=== PATIENT | female | born 1950 | race Caucasian/White ===

== ENCOUNTER 2017-06-03 15:27 | Inpatient (IN) | payer MEDICAID ==
--- NOTE | 2017-06-03 16:01 | CPEKG ---
Heart Rate: 72 RR Interval: 833 P-R Interval: 160 QRSD Interval: 82 QT Interval: 444 QTC Interval: 486 P [place]: 57 QRS [place]: 28 T Wave [place]: 63 EKG Severity - BORDERLINE ECG - EKG Impression: SINUS RHYTHM EKG Impression: BORDERLINE T ABNORMALITIES, ANT-LAT LEADS EKG Impression: BORDERLINE PROLONGED QT INTERVAL Electronically Signed By: Rosalba Whitten 03-Jun-2017 20:01:11
[2017-06-03] MEDS ORDERED: ONDANSETRON 4 MG/2 ML VIAL ONE (16:08)
[2017-06-03] MEDS ORDERED: NS 1,000 ML IV ONE (16:12)
[2017-06-03] MEDS ORDERED: ONDANSETRON 4 MG/2 ML VIAL IVP ONE (16:12)
--- NOTE | 2017-06-03 16:13 | EDPHY ---
H & P Time Seen by Provider: 06/03/17 15:53 HPI/ROS: CHIEF COMPLAINT: Nausea vomiting HISTORY OF PRESENT ILLNESS: Patient is a 66-year-old female with a history of chronic kidney disease, stage IV, who presents emergency department with nausea vomiting times 12 days. Patient has approximately 2 episodes of nonbloody emesis per day. She has had difficulty eating because of poor appetite. She feels fatigued. She has no abdominal pain. No diarrhea. No recent travel. No antibiotic use. No dysuria or frequency. No fevers or chills. REVIEW OF SYSTEMS: My complete review of systems is negative except as mentioned in the HPI. Past Medical/Surgical History: Chronic kidney disease Past surgical history: Includes appendectomy Social history: The patient does not smoke. She denies alcohol use. Smoking Status: Never smoked Physical Exam: Vitals noted. 209/133. Patient denies history of hypertension. GENERAL: Well-appearing, in no acute distress, alert. HEENT: Eyes normal to inspection, normal pharynx, no signs of dehydration. NECK: No thyromegaly, no lymphadenopathy, supple. RESPIRATORY: Clear to auscultation bilaterally, no rales, rhonchi or wheezing. CVS: Regular rate and rhythm, no rubs, murmurs, or gallops. ABDOMEN: Soft, nontender, nondistended, no organomegaly. BACK: Normal to inspection, no CVA tenderness. SKIN: Normal color, no rash, warm, dry. No pallor. EXTREMITIES: Mild bilateral finger no clubbing. No pedal edema, no calf tenderness, no Homans sign or cords, no joint swelling. NEURO/PSYCH: Alert and oriented x3, normal mood and affect, normal motor sensory exam. No obvious cranial nerve deficit. Constitutional: Initial Vital Signs Temperature (C) 36.5 C 06/03/17 15:31 Heart Rate 83 06/03/17 15:31 Respiratory Rate 16 06/03/17 15:31 Blood Pressure 209/133 H 06/03/17 15:31 O2 Sat (%) 98 06/03/17 15:31 O2 Delivery Mode Room Air Allergies/Adverse Reactions: No Known Allergies Allergy (Unverified 09/23/11 17:09) Home Medications: Medication Instructions Recorded NK [No Known Home Meds] 06/03/17 Medical Decision Making - Diagnostics EKG Interpretation: Sinus rhythm at 72. Normal axis. Borderline prolonged QT. No ST or T-wave abnormality. ED Course/Re-evaluation: In the emergency department I discussed possible etiologies with the patient. I answered all her questions. IV was placed. The patient was given normal saline 500 mL IV for hydration. She was given Zofran 4 mg IV. Reviewed the patient's laboratory studies. Patient has a normal white count 7.8. Her med crit is low at 23. Platelets were 328. The patient has an elevated creatinine of 14.3. The potassium is 5.3. CO2 13. AST and ALT are normal. I discussed the results with the patient. I answered all her questions. I consulted Dr. Devan James. He will admit the patient. I paged nephrology 1735: I discussed case with Dr. Patiño from nephrology. She recommended a renal ultrasound. This was ordered. I discussed this with Dr. James. Patient was given labetalol 20 mg IV for her hypertension. 1845: I rechecked the patient. She had no new complaints. Her blood pressure was 168/99. Differential Diagnosis: My differential includes but is not limited to electrolyte abnormality, sugar abnormality, dehydration, kidney disease, hypertensive urgency, hypertensive emergency, viral illness, copd Critical Care Time: The patient required 35 minutes of critical care time. This was exclusive of any unbundled procedure. This was due the patient's new onset renal failure, need for frequent rechecks, consultation with Nephrology and Internal Medicine and treatment with labetalol for hypertension. - Data Points Laboratory Results: Laboratory Results 06/03/17 16:10 06/03/17 16:10 06/03/17 06/03/17 06/03/17 16:10 16:10 16:10 WBC 7.85 10^3/uL 10^3/uL (3.80-9.50) RBC 2.53 10^6/uL L 10^6/uL (4.18-5.33) Hgb 7.4 g/dL L g/dL (12.6-16.3) Hct 23.3 % L % (38.0-47.0) MCV 92.1 fL fL (81.5-99.8) MCH 29.2 pg pg (27.9-34.1) MCHC 31.8 g/dL L g/dL (32.4-36.7) RDW 13.8 % % (11.5-15.2) Plt Count 328 10^3/uL 10^3/uL (150-400) MPV 12.0 fL H fL (8.7-11.7) Neut % (Auto) 69.3 % % (39.3-74.2) Lymph % (Auto) 21.4 % % (15.0-45.0) [place] % (Auto) 6.0 % % (4.5-13.0) Eos % (Auto) 1.9 % % (0.6-7.6) Baso % (Auto) 1.1 % % (0.3-1.7) Nucleat RBC Rel Count 0.0 % % (0.0-0.2) Absolute Neuts (auto) 5.44 10^3/uL 10^3/uL (1.70-6.50) Absolute Lymphs (auto) 1.68 10^3/uL 10^3/uL (1.00-3.00) Absolute Monos (auto) 0.47 10^3/uL 10^3/uL (0.30-0.80) Absolute Eos (auto) 0.15 10^3/uL 10^3/uL (0.03-0.40) Absolute Basos (auto) 0.09 10^3/uL 10^3/uL (0.02-0.10) Absolute Nucleated RBC 0.00 10^3/uL 10^3/uL (0-0.01) Immature Gran % 0.3 % % (0.0-1.1) Immature Gran # 0.02 10^3/uL 10^3/uL (0.00-0.10) Sodium 142 mEq/L mEq/L (134-144) Potassium 5.3 mEq/L H mEq/L (3.5-5.2) Chloride 107 mEq/L mEq/L (97-110) Carbon Dioxide 13 mEq/l L mEq/l (22-31) Anion Gap 22 mEq/L H mEq/L (8-16) BUN 143 mg/dL H* mg/dL (7-23) Creatinine 14.3 mg/dL H* mg/dL (0.6-1.0) Estimated GFR 3 Glucose 104 mg/dL H mg/dL (70-100) Calcium 7.3 mg/dL L mg/dL (8.5-10.4) Iron 81.0 mcg/dL mcg/dL (37.0-170.0) TIBC 266 ug/dL ug/dL (260-490) Iron Saturation 31 % % (20-55) Ferritin 192.0 ng/mL ng/mL (6.2-264.0) Total Bilirubin 0.3 mg/dL mg/dL (0.1-1.4) Conjugated Bilirubin 0.3 mg/dL mg/dL (0.0-0.5) Unconjugated Bilirubin 0.0 mg/dL mg/dL (0.0-1.1) AST 15 IU/L IU/L (14-46) ALT 23 IU/L IU/L (9-52) Alkaline Phosphatase 130 IU/L H IU/L (38-126) Troponin I 0.026 ng/mL ng/mL (0.000-0.034) Total Protein 6.7 g/dL g/dL (6.3-8.2) Albumin 3.5 g/dL g/dL (3.5-5.0) Lipase 639 IU/L H IU/L (23-300) Medications Given: Labetalol HCl 200 mg/ Dextrose 200 mls @ 0 mls/hr IV CONT VAN; As Directed PRN Reason: Protocol Stop: 11/30/17 17:59 Last Admin: 06/03/17 18:35 Dose: 200 mls Sodium Bicarbonate 150 meq/ (Dextrose) 1,150 mls @ 100 mls/hr IV CONT VAN Stop: 11/30/17 17:59 Last Admin: 06/03/17 18:36 Dose: 1,150 mls Discontinued Medications Sodium Chloride (Ns) 1,000 mls @ 0 mls/hr IV ONCE ONE PRN Reason: Wide Open Stop: 06/03/17 16:13 Last Admin: 06/03/17 16:13 Dose: 1,000 mls Sodium Chloride (Ns) 500 mls @ 0 mls/hr IV EDNOW ONE; Wide Open PRN Reason: Protocol Stop: 06/03/17 16:16 Last Admin: 06/03/17 16:23 Dose: Not Given Labetalol HCl (Labetalol Hcl) 20 mg IVP EDNOW ONE Stop: 06/03/17 17:47 Last Admin: 06/03/17 18:14 Dose: 20 mg Labetalol HCl (Trandate Injection) 20 mg IVP ONCE ONE Stop: 06/03/17 18:01 Last Admin: 06/03/17 18:13 Dose: 20 mg Ondansetron HCl (Zofran) 4 mg IVP EDNOW ONE Stop: 06/03/17 16:13 Last Admin: 06/03/17 16:13 Dose: 4 mg Departure - Departure Disposition: Home, Routine, Self-Care Clinical Impression: Hypertension Qualifiers: Hypertension type: unspecified Qualified Code(s): I10 - Essential (primary) hypertension Vomiting Qualifiers: Vomiting type: unspecified Vomiting Intractability: intractable Nausea presence : without nausea Qualified Code(s): R11.11 - Vomiting without nausea Condition: Good
[2017-06-03] MEDS ORDERED: NS 500 ML IV ONE (16:15)
[2017-06-03 16:26] LABS: % IMMATURE GRANULYOCYTES 0.3 % (0.0-1.1); ABSOLUTE IMMATURE GRANULOCYTES 0.02 10^3/uL (0.00-0.10); ADD DIFF? NO; ADD MORPH? NO; ADD SCAN? NO; ATYPICAL LYMPHOCYTE FLAG 0 (0-99); FRAGMENT RBC FLAG 10 (0-99); HEMATOCRIT 23.3 % (38.0-47.0); HEMOGLOBIN 7.4 g/dL (12.6-16.3); LEFT SHIFT FLG 0 (0-99); LIPEMIA HEMOLYSIS FLAG 80 (0-99); MEAN CELL HEMOGLOBIN 29.2 pg (27.9-34.1); MEAN CELL HEMOGLOBIN CONCENTR. 31.8 g/dL (32.4-36.7); MEAN CELL VOLUME 92.1 fL (81.5-99.8); PLATELET CLUMPS FLAG 0 (0-99); PLATELET COUNT 328 10^3/uL (150-400); RED BLOOD CELL COUNT 2.53 10^6/uL (4.18-5.33); RED CELL DISTRIBUTION WIDTH 13.8 % (11.5-15.2)
[2017-06-03 16:40] LABS: ALANINE AMINOTRANSFERASE 23 IU/L (9-52); ALBUMIN 3.5 g/dL (3.5-5.0); ALKALINE PHOSPHATASE 130 IU/L (38-126); ANION GAP 22 mEq/L (8-16); ASPARTATE AMINOTRANSFERASE 15 IU/L (14-46); BILIRUBIN,TOTAL 0.3 mg/dL (0.1-1.4); BILIRUBIN-CONJUGATED 0.3 mg/dL (0.0-0.5); CALCIUM 7.3 mg/dL (8.5-10.4); CARBON DIOXIDE 13 mEq/l (22-31); CHLORIDE 107 mEq/L (97-110); GLUCOSE 104 mg/dL (70-100); POTASSIUM 5.3 mEq/L (3.5-5.2); SODIUM 142 mEq/L (134-144); TOTAL PROTEIN 6.7 g/dL (6.3-8.2)
[2017-06-03 16:51] LABS: TROPONIN I 0.026 ng/mL (0.000-0.034)
[2017-06-03 17:08] LABS: GLOMERULAR FILTRATION RATE 3
[2017-06-03 17:09] LABS: CREATININE 14.3 mg/dL (0.6-1.0)
[2017-06-03] MEDS ORDERED: LABETALOL HCL 50 MG/10 ML SYR IVP ONE (17:46)
[2017-06-03] MEDS ORDERED: SODIUM BICARBONATE 150 MEQ in D5W 1,000 ML IV SCH (18:00)
[2017-06-03] MEDS ORDERED: LABETALOL HCL 5 MG/ML 20 ML MDV IVP ONE (18:00)
--- NOTE | 2017-06-03 18:06 | GHP ---
[f rep st] HISTORY AND PHYSICAL DATE OF ADMISSION: 06/03/2017 CHIEF COMPLAINT: Nausea, vomiting. HISTORY OF PRESENT ILLNESS: This is a 66-year-old female with history of stage 4 chronic kidney disease who presents to the hospital with 12 days of nausea and vomiting that is not getting better. She states that she has been throwing up about once per day around noon. She denies any hematemesis or coffee- grounds emesis. She has been having some black stools the past few days. She denies any blood in her urine but has been making urine. She drinks a lot of [employer] cranberry juice. She denies any NSAID use. She has been taking Tylenol as needed over the past few days. She has been followed by a gasoline power shovel operator in [place] who has talked to her about dialysis. She is unable to tell me the cause of her kidney disease. PAST MEDICAL HISTORY: Stage 4 chronic kidney disease. PAST SURGICAL HISTORY: section, laparotomy for splenic rupture, appendectomy. HOME MEDICATIONS: Reviewed; refer to [employer] for details. ALLERGIES: No known drug allergies. SOCIAL HISTORY: She lives in [place]. She denies any alcohol, tobacco, or illicit drug use. FAMILY HISTORY: Significant for chronic kidney disease in her mother, who is on dialysis. REVIEW OF SYSTEMS: Comprehensive 10-point review of systems was done and is negative, except for as mentioned in the HPI and below. CONSTITUTIONAL: The patient reports generalized malaise and weakness. PHYSICAL EXAMINATION: VITAL SIGNS: Blood pressure 209/133, heart rate 83, respiratory rate 16, O2 saturation 98% on room air. Temperature afebrile. GENERAL: No acute distress. HEENT: Head: Normocephalic, atraumatic. Eyes: PERRLA. Sclerae anicteric. Mouth: Dry oral mucosa. NECK: Supple. No lymphadenopathy. CARDIOVASCULAR: S1, S2, with a soft diastolic murmur. PULMONARY: Lungs are clear. No wheezes, rales, or rhonchi. ABDOMEN: Soft, nontender, nondistended. No guarding or rebound tenderness. There is a midline abdominal surgical scar. EXTREMITIES: She has digital clubbing. No lower extremity edema. SKIN: Clear. No rash. NEUROLOGIC: Cranial nerves 2 through 12 grossly intact. No focal motor or sensory deficits. DIAGNOSTICS: WBC 7.8, hemoglobin 7.4, hematocrit 23.3, platelets 328. Sodium 142, potassium 5.3, chloride 107, CO2 13, BUN 143, creatinine 14.3, glucose 104. LFTs unremarkable. Lipase 639. EKG, which I visualized and personally interpreted, shows sinus rhythm, rate 72 beats per minute, borderline T-wave abnormalities in the anterolateral leads. 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 There is no obstruction. No evidence for renal masses. No mention of polycystic kidney disease. ASSESSMENT AND PLAN: This is a 66-year-old female with history of stage 4 chronic kidney disease presenting with: 1. Twelve days of nausea and vomiting, possibly due to symptomatic uremia. 2. Acute on chronic kidney disease with a potassium of 5.3, BUN of 143, and creatinine of 14.3. 3. Normocytic anemia with reported melena. 4. Hypertensive Emergency PLAN: 1. The patient will be admitted to telemetry. 2. Dr. Bardales with [facility] has been consulted. 3. Will repeat a renal ultrasound as well as urine electrolytes. The patient may be a candidate for dialysis now given her symptomatic uremia. Her potassium is high normal but will defer to Nephrology as to whether to start dialysis now or to start with IV hydration to see if we are able to improve her renal function. 4. Will obtain iron studies and check stool for occult blood. Will defer consulting GI, but she will likely need a GI workup in the near future to further evaluate her anemia; however, this could be due to anemia of chronic disease given her kidney disease. 5. Labetalol drip 6. The patient requests to be full code status. /[id number]/MODL MTDD
[2017-06-03 18:12] LABS: % SATURATION 31 % (20-55); TOTAL IRON BINDING CAPACITY 266 ug/dL (260-490)
[2017-06-03] MEDS: LABETALOL HCL 200 MG in D5W 200 ML IV SCH ×3 (18:31→21:00)
[2017-06-03 18:39] LABS: COLOR PALE YELLOW; LEUKOCYTE ESTERASE,URINE NEGATIVE (NEGATIVE); NITRITE,URINE NEGATIVE (NEGATIVE)
--- NOTE | 2017-06-03 19:39 | PDCONSULT ---
Retail Link Analyst Note: Assessment/Plan: ADORE on CKD stage IV: Pt was known to have stage 4 CKD in 2015 with Cr stable around 2.7, 2.6g proteinuria, negative serological workup. She refused biopsy at the time and has not returned to clinic since 11/2014. She now presents with acute symptoms of N/V/D and Cr of 14, UA with proteinuria, acidosis, hyperkalemia. It sounds like she has become uremic and now is having symptoms from that, but she could also have prerenal injury due to her current GI complaints. - No emergent need for HD at this time. However, she is very close and I discussed with pt that it may be required during this hospitalization or soon after. - Will continue IVFs, D5 with three amps of bicarb. - Will send urine sodium, urine protein, urine Cr. - Will check renal US. - Avoid MOM, morphine, demerol, NSAIDs, contrast, aminoglycosides, fleets, hypotension, and other nephrotoxins. HTN: uncontrolled, pt on no meds at home. - Agree with labetalol, can also try nifedipine if needed. - Would aim for SBP 140-160 for now in setting of ADORE. Hyperkalemia: K 5.3, giving bicarb as above and will continue to monitor. Metabolic acidosis: likely from ADORE and possibly also due to diarrhea, giving bicarb as above and will continue to monitor. Anemia: Agree with pursuing GI workup for possible hematochezia, may require epo. Thank you for the interesting consult. Nephrology will continue to follow, please call if you have any additional questions or concerns. H & P Stated Complaint: n/v x 12 days, diarrhea, fatigue "im sure im dehydrated" Time Seen by Provider: 06/03/17 15:53 HPI/ROS: HPI: Ms. Coley is a 66 yo F with h/o CKD stage IV, proteinuria, and HTN who presents to ER today with N/V/D. Pt was previously seen by our practice by Dr. Barbosa for CKD stage IV with last known Cr in 2014 of 2.7, has not been seen in clinic since 11/2014. She had a full serological workup done at the time, including ANCA, ANGEL, anti-GBM, SPEP/UPEP, HIV, all which were negative, and she was known to have 2.6g proteinuria. She had discussions about transplant, biopsy, and dialysis, but she deferred biopsy and stopped all her medications and did not return to clinic. She states she was trying to improve her diet and overall health naturally, has not been on supplements or NSAIDs, only takes fluoxetine. She notes that in general she has noticed she has had worsening fatigue in the past few months. For the past two weeks, she has been having nausea, vomiting, dry heaves, and diarrhea. She has not had any hematemesis but notes black stools for the past two days. She was able to keep down some water but not food, so came in. Her Cr is now 14, she is acidotic, and SBP was up to 200s. She states that she checks her BP intermittently at home and it has been running 120s/80s. She has no swelling in her legs, no hematuria, does have foamy urine. She denies any rash or joint swelling. ROS: Positive per HPI, rest of 10-point ROS negative - Personal History Current Tetanus/Diphtheria Vaccine: Unsure Current Tetanus Diphtheria and Acellular Pertussis (TDAP): Unsure - Medical/Surgical History Hx Asthma: No Hx Chronic Respiratory Disease: No Hx Diabetes: No Hx Cardiac Disease: No Hx Renal Disease: Yes Hx Cirrhosis: No Hx Alcoholism: No Hx HIV/AIDS: No Hx Splenectomy or Spleen Trauma: No Other PMH: appendectomy. CKD stage 4. HTN. Proteinuria - Family History Significant Family History: No pertinent family hx - Social History Smoking Status: Never smoked - Physical Exam Exam: General: alert and oriented, no acute distress Eyes; EOMI, PERRL OP: Clear, MMM Neck: supple, no thyromegaly CV: RRR, +2/4 radial and dorsalis pedis pulses, no peripheral edema Resp: CTA bilat, nonlabored respirations Abd; Soft, NT/ND Neuro: CN II-XII grossly intact, no asterixis Psych: cooperative, appropriate mood and affect Skin: C/D/I, no rash Access: none Constitutional: Initial Vital Signs Temperature (C) 36.5 C 06/03/17 15:31 Heart Rate 83 06/03/17 15:31 Respiratory Rate 16 06/03/17 15:31 Blood Pressure 209/133 H 06/03/17 15:31 O2 Sat (%) 98 06/03/17 15:31 O2 Delivery Mode Room Air Allergies/Adverse Reactions: No Known Allergies Allergy (Unverified 09/23/11 17:09) Home Medications: Medication Instructions Recorded NK [No Known Home Meds] 06/03/17 Lab and Imaging 06/03/17 16:10 06/03/17 16:10 WBC 7.85 10^3/uL (3.80-9.50) 06/03/17 16:10 RBC 2.53 10^6/uL (4.18-5.33) L 06/03/17 16:10 Hgb 7.4 g/dL (12.6-16.3) L 06/03/17 16:10 Hct 23.3 % (38.0-47.0) L 06/03/17 16:10 MCV 92.1 fL (81.5-99.8) 06/03/17 16:10 MCH 29.2 pg (27.9-34.1) 06/03/17 16:10 MCHC 31.8 g/dL (32.4-36.7) L 06/03/17 16:10 RDW 13.8 % (11.5-15.2) 06/03/17 16:10 Plt Count 328 10^3/uL (150-400) 06/03/17 16:10 MPV 12.0 fL (8.7-11.7) H 06/03/17 16:10 Neut % (Auto) 69.3 % (39.3-74.2) 06/03/17 16:10 Lymph % (Auto) 21.4 % (15.0-45.0) 06/03/17 16:10 [place] % (Auto) 6.0 % (4.5-13.0) 06/03/17 16:10 Eos % (Auto) 1.9 % (0.6-7.6) 06/03/17 16:10 Baso % (Auto) 1.1 % (0.3-1.7) 06/03/17 16:10 Nucleat RBC Rel Count 0.0 % (0.0-0.2) 06/03/17 16:10 Absolute Neuts (auto) 5.44 10^3/uL (1.70-6.50) 06/03/17 16:10 Absolute Lymphs (auto) 1.68 10^3/uL (1.00-3.00) 06/03/17 16:10 Absolute Monos (auto) 0.47 10^3/uL (0.30-0.80) 06/03/17 16:10 Absolute Eos (auto) 0.15 10^3/uL (0.03-0.40) 06/03/17 16:10 Absolute Basos (auto) 0.09 10^3/uL (0.02-0.10) 06/03/17 16:10 Absolute Nucleated RBC 0.00 10^3/uL (0-0.01) 06/03/17 16:10 Immature Gran % 0.3 % (0.0-1.1) 06/03/17 16:10 Immature Gran # 0.02 10^3/uL (0.00-0.10) 06/03/17 16:10 Sodium 142 mEq/L (134-144) 06/03/17 16:10 Potassium 5.3 mEq/L (3.5-5.2) H 06/03/17 16:10 Chloride 107 mEq/L (97-110) 06/03/17 16:10 Carbon Dioxide 13 mEq/l (22-31) L 06/03/17 16:10 Anion Gap 22 mEq/L (8-16) H 06/03/17 16:10 BUN 143 mg/dL (7-23) H* 06/03/17 16:10 Creatinine 14.3 mg/dL (0.6-1.0) H* 06/03/17 16:10 Estimated GFR 3 06/03/17 16:10 Glucose 104 mg/dL (70-100) H 06/03/17 16:10 Calcium 7.3 mg/dL (8.5-10.4) L 06/03/17 16:10 Iron 81.0 mcg/dL (37.0-170.0) 06/03/17 16:10 TIBC 266 ug/dL (260-490) 06/03/17 16:10 Iron Saturation 31 % (20-55) 06/03/17 16:10 Ferritin 192.0 ng/mL (6.2-264.0) 06/03/17 16:10 Total Bilirubin 0.3 mg/dL (0.1-1.4) 06/03/17 16:10 Conjugated Bilirubin 0.3 mg/dL (0.0-0.5) 06/03/17 16:10 Unconjugated Bilirubin 0.0 mg/dL (0.0-1.1) 06/03/17 16:10 AST 15 IU/L (14-46) 06/03/17 16:10 ALT 23 IU/L (9-52) 06/03/17 16:10 Alkaline Phosphatase 130 IU/L (38-126) H 06/03/17 16:10 Troponin I 0.026 ng/mL (0.000-0.034) 06/03/17 16:10 Total Protein 6.7 g/dL (6.3-8.2) 06/03/17 16:10 Albumin 3.5 g/dL (3.5-5.0) 06/03/17 16:10 Lipase 639 IU/L (23-300) H 06/03/17 16:10 Urine Color PALE YELLOW 06/03/17 18:15 Urine Appearance CLEAR 06/03/17 18:15 Urine pH 6.0 (5.0-7.5) 06/03/17 18:15 Ur Specific [place] 1.009 (1.002-1.030) 06/03/17 18:15 Urine Protein 3+ (NEGATIVE) H 06/03/17 18:15 Urine Ketones NEGATIVE (NEGATIVE) 06/03/17 18:15 Urine Blood NEGATIVE (NEGATIVE) 06/03/17 18:15 Urine Nitrate NEGATIVE (NEGATIVE) 06/03/17 18:15 Urine Bilirubin NEGATIVE (NEGATIVE) 06/03/17 18:15 Urine Urobilinogen NEGATIVE EU (0.2-1.0) 06/03/17 18:15 Ur Leukocyte Esterase NEGATIVE (NEGATIVE) 06/03/17 18:15 Urine RBC 1-3 /hpf (0-3) 06/03/17 18:15 Urine WBC 1-3 /hpf (0-3) 06/03/17 18:15 Ur Epithelial Cells TRACE /lpf (NONE-1+) 06/03/17 18:15 Urine Glucose 1+ (NEGATIVE) H 06/03/17 18:15
[2017-06-03] MEDS ORDERED: PROMETHAZINE HCL 25 MG/ML INJ IVP ONE (20:45)
[2017-06-04 05:04] LABS: % IMMATURE GRANULYOCYTES 0.2 % (0.0-1.1); ABSOLUTE IMMATURE GRANULOCYTES 0.01 10^3/uL (0.00-0.10); ADD DIFF? NO; ADD MORPH? YES; ADD SCAN? NO; ATYPICAL LYMPHOCYTE FLAG 0 (0-99); FRAGMENT RBC FLAG 0 (0-99); LEFT SHIFT FLG 0 (0-99); LIPEMIA HEMOLYSIS FLAG 80 (0-99); MEAN CELL HEMOGLOBIN 29.1 pg (27.9-34.1); MEAN CELL HEMOGLOBIN CONCENTR. 32.5 g/dL (32.4-36.7); MEAN CELL VOLUME 89.4 fL (81.5-99.8); MEAN PLATELET VOLUME 11.7 fL (8.7-11.7); PLATELET CLUMPS FLAG 0 (0-99); PLATELET COUNT 261 10^3/uL (150-400); RED BLOOD CELL COUNT 1.89 10^6/uL (4.18-5.33); RED CELL DISTRIBUTION WIDTH 13.9 % (11.5-15.2)
[2017-06-04 05:07] LABS: HEMATOCRIT 16.9 % (38.0-47.0); HEMOGLOBIN 5.5 g/dL (12.6-16.3)
[2017-06-04 05:22] LABS: ALBUMIN 2.8 g/dL (3.5-5.0); ANION GAP 19 mEq/L (8-16); CALCIUM 6.5 mg/dL (8.5-10.4); CARBON DIOXIDE 17 mEq/l (22-31); CHLORIDE 102 mEq/L (97-110); CREATININE 12.9 mg/dL (0.6-1.0); GLOMERULAR FILTRATION RATE 3; GLUCOSE 110 mg/dL (70-100); POTASSIUM 4.1 mEq/L (3.5-5.2); SODIUM 138 mEq/L (134-144)
[2017-06-04 05:30] LABS: ACANTHOCYTES 1+; PLATELET ESTIMATE ADEQUATE (ADEQ)
[2017-06-04 05:32] LABS: PTH INTACT NO MINERALS 848.8 pg/ml (10.8-79.4)
--- NOTE | 2017-06-04 05:32 | HOSPPROG ---
Hospitalist Progress Note Assessment/Plan: Cross-cover call: H/H 5.5/16.9 this morning; patient asymptomatic with no overt signs of bleeding and VSS. Will transfuse 1u pRBC (cautiously noting very low GFR), order re-check CBC after transfusion, and consult GI noting complaints of melena x2 days. Continue to monitor in ICU. Objective: Vital Signs Temp Pulse Resp BP Pulse Ox 36.5 C 66 18 128/68 H 95 06/03/17 15:31 06/04/17 04:00 06/04/17 04:00 06/04/17 04:00 06/04/17 04:00 Laboratory Results 06/04/17 04:40 06/02/17 06/03/17 06/04/17 05:59 05:59 05:59 Intake Total 620 Balance 620 ICD10 Worksheet Patient Problems: Problems Problem Status Onset Hypertension Acute Vomiting Acute
[2017-06-04 05:35] LABS: CREATININE 12.9 mg/dL (0.6-1.0)
--- NOTE | 2017-06-04 09:56 | ECHO ---
[id number] + + [address] : : [place] [address] : : [phone] + Adult Echocardiographic Report + ---+ :Name: ERIN GOLDEN Kait Date: 06/04/2017 08:27 AM : : Hospital Admission Number: [id number] Location: 242: :: 1950 Gender: Female Height: 60 in : :Age: 66 yrs Race: WH Weight: 112 lb : :Reason For Study: Murmur and possible rub : : BSA: 1.5 meters2 : + ---+ MMode/2D Measurements & Calculations IVSd: 1.2 cm LVIDd: 4.2 cm FS: 40.6 % Ao root diam: 3.4 cm LVPWd: 1.0 cm LVIDs: 2.5 cm EDV(Teich): 79.8 ml LA dimension: 3.3 cm ESV(Teich): 22.6 ml EF(Teich): 71.7 % LVOT diam: 1.9 cm LVOT area: 2.9 cm2 Normal Measurement Values: + + :LVIDd (3.5-5.7cm) IVSd (0.6-1.1cm) LVPWd (0.6-1.1cm) Aortic Root (2.0-3.7cm)Left Atrium (1.5-4.0cm): :LV Vol(d) (76-115ml) LV Vol(s) (29-48ml) Ejec Fraction (50-65%)PV Steve (0.6- 1.2m/s) TV Steve (0.4-1.0m/s) : :MV E Steve (0.8-1.0m/s)MV A Steve (0.3-1.0m/s)LVOT Steve (0.7-1.2m/s) Asc Ao Steve ( 0.9-1.8m/s) : + + Doppler Measurements & Calculations MV E max steve: 57.8 cm/sec Ao V2 max: 104.2 cm/sec MV A max steve: 80.9 cm/sec Ao max P.3 mmHg MV E/A: 0.71 Left Ventricle The left ventricle is normal in size. There is mild concentric left ventricular hypertrophy. Basal septal hypertrophy without dynamic LVOT gradient. Left ventricular systolic function is normal. Ejection Fraction = 65-70%. There is Doppler evidence for diastolic dysfunction. No regional wall motion abnormalities noted. Right Ventricle The right ventricle is normal in size and function. Atria The left atrium is mildly dilated. Right atrial size is normal. The interatrial septum is intact with no evidence for an atrial septal defect. Mitral Valve The mitral valve is normal in structure and function. There is no evidence of mitral valve prolapse. There is no mitral valve stenosis. There is mild to moderate mitral regurgitation. Tricuspid Valve Normal tricuspid valve. There is mild tricuspid regurgitation. Aortic Valve The aortic valve is trileaflet. The aortic valve opens well. There is no aortic stenosis. Trace aortic regurgitation. Pulmonic Valve The pulmonic valve is normal in structure and function. Trace pulmonic valvular regurgitation. Great Vessels The aortic root is normal size. Pericardium/Pleural There is no pericardial effusion. Conclusion A complete two-dimensional transthoracic echocardiogram was performed (2D, M-mode, Doppler and color flow Doppler). Technically difficult study due to pt's implants. Left ventricular systolic function is normal. Ejection Fraction = 65-70%. There is mild concentric left ventricular hypertrophy. Basal septal hypertrophy without dynamic LVOT gradient. There is Doppler evidence for diastolic dysfunction. The left atrium is mildly dilated. Normal appearing valves. There is mild to moderate mitral regurgitation. There is mild tricuspid regurgitation. Trace pulmonic valvular regurgitation. Trace aortic regurgitation. Final Reading Physician: Rachel Huff signed on 06/04/2017 09:55 AM Ordering Physician: Devan James Performed By: Carly Ayoub RDCS
--- NOTE | 2017-06-04 10:07 | GCON ---
[f rep st] CONSULTATION CRITICAL CARE CONSULT DATE OF CONSULTATION: 06/04/2017 HISTORY OF PRESENT ILLNESS: This patient is a 66-year-old female with known stage 4 chronic kidney d vera, who was admitted overnight with significant nausea and vomiting. She was unable to keep anyt jose raul down. She also noted that she had been having some dark stool without hematemesis or coffee-trenton unds emesis over the last several days. She is a nonsmoker and does not use any NSAIDs and has been followed by Nephrology in [place] about her progressive renal disease, but no dialysis has been plan марина to date, and there has been no fistula placed. She was uncertain of the cause of her disease. PAST MEDICAL HISTORY: Includes stage 4 chronic kidney disease. PAST SURGICAL HISTORY: Includes , laparotomy for remote splenic rupture, and an appendectom y. SOCIAL HISTORY: She is a nonsmoker. No alcohol or IV drug use. FAMILY HISTORY: Includes end-stage renal disease. MEDICATIONS: Include only labetalol p.r.n. and a bicarb drip that was started last evening. PHYSICAL EXAMINATION: VITAL SIGNS: She had a blood pressure 131/81, heart rate 61, oxygen saturatio n 96% on room air, respirations 18. GENERAL: She is a pleasant woman in no apparent distress. Able to speak in full sentences without using accessory muscles for breathing. HEENT: Pupils equally ro und and reactive to light. Nonicteric and noninjected. Mucous membranes are moist without erythema or exudate. NECK: Supple without adenopathy or jugular vein distention. Breath sounds are clear to auscultation bilaterally without wheezes, rubs, or rales. HEART: Regular rate and rhythm without o bvious murmur. ABDOMEN: Soft, nontender, nondistended without hepatosplenomegaly. EXTREMITIES: No clubbing, cyanosis, or edema. OBJECTIVE DATA: White count of 5.9. Her hematocrit was 23 on arrival last night. It is down to 16. 9 this morning. She is getting 1 unit of blood now. Platelets were normal at 261. Basic metabolic panel today shows a sodium of 138, potassium 4.8, chloride 102, bicarb 17, BUN 139, creatinine 12.9. Phosphorus of 6.9. Iron studies yesterday were unremarkable. Her liver function tests were normal save for an alkaline phosphatase of 138, lipase was 639. Calcium was normal. Urinalysis showed 3+ p rotein and glucose but was otherwise bland. Hemoccult was negative. ASSESSMENT AND PLAN: 1. Probable end-stage renal disease with fairly significant uremia. Though her creatinine and bicar b are better, she may be headed for dialysis. I will defer to the nephrology consult at this point t o see if, at least, fistulas should be placed at this time. Otherwise continue her on a bicarb drip and monitoring. She does have no Potter placed, and we may consider putting that in. 2. Anemia. Fairly profound for anemia of chronic disease though she has little to no symptoms to culver pport gastrointestinal bleeding. Of note, she did have a normal colonoscopy in 2013 at [facility]. She is otherwise stable at this time. /[id number]/MODL
--- NOTE | 2017-06-04 10:21 | GCON ---
[f rep st] CONSULTATION CHIEF COMPLAINT: A 66-year-old woman with melena and anemia. HISTORY OF PRESENT ILLNESS: This very pleasant, 66-year-old woman was referred to me in consultation by Dr. Gruber regarding melena and anemia. The patient has a history of chronic kidney disease stage IV. The patient's stage IV kidney disease was diagnosed in 2014. She has had a stable creatinine since that time at 2.7. She has had some mild proteinuria with negative serologic workup. The patient has not had a previous kidney biopsy. Chronic kidney disease is presumed from chronic hypertension. She presented to the hospital with worsening symptoms of nausea vomiting with a creatinine of 14, with worsening kidney failure. She has been having melenic stool for the last several weeks. Denies any lightheadedness or dizziness. However she had a significant drop in her hematocrit on admission. She was given IV fluids. She has also been transfused packed red blood cells. Asked to see patient for further evaluation. She denies any NSAID use. PAST MEDICAL HISTORY: Remarkable for stage IV chronic kidney disease. PAST SURGICAL HISTORY: Remarkable for section and laparotomy for splenic rupture as a result of a horse accident and previous appendectomy. HOME MEDICATIONS: None prior to admission. ALLERGIES: No known drug allergies. SOCIAL HISTORY: Lives in [place]. Nondrinker and nonsmoker. FAMILY HISTORY: Remarkable for chronic kidney disease in her mother. Her mother is on dialysis. REVIEW OF SYSTEMS: Negative for 10 systems other than mentioned HPI. PHYSICAL EXAM: VITAL SIGNS: 131/81, pulse 61, respiratory rate 18, 96% on room air, 37.7. GENERAL: A very pleasant woman in no acute distress. HEENT: Normocephalic, atraumatic. EOMI. NECK: Supple. No cervical adenopathy. No thyromegaly. Mucous membranes moist. LUNGS: Clear. CARDIAC: Normal S1, S2 without murmur. ABDOMEN: Benign. Nontender. No hepatomegaly. EXTREMITIES: Without clubbing, cyanosis, edema. NEURO: Nonfocal. SKIN: Warm, dry, intact. PSYCH: Alert and oriented x3 with normal affect. LABORATORY DATA: Hemoglobin 5.5, hematocrit of 16.9. Admission hematocrit was 23.3. MCV was normal at 89.4. Serum sodium is 138, potassium 4.1, chloride 102 , CO2 17, BUN was 139, creatinine of 12.9. IMPRESSION: A 66-year-old woman with chronic kidney disease, with acute renal failure and worsening renal function requiring dialysis. Patient with symptoms of azotemia, renal failure with increasing problems with uremia and nausea vomiting for the last several weeks. The patient with melenic stool. Suspect underlying gastritis or possibly Alayna-Avelar tear. Rule out significant ulcer disease. RECOMMENDATIONS: N.p.o. Would treat with IV pantoprazole 40 mg q.12 until EGD. Proceed with diagnostic therapeutic endoscopy. Will follow with you. /[id number]/MODL MTDD
[2017-06-04] MEDS ORDERED: fentaNYL 100 MCG/2 ML INJ ONE ×2 (10:31→10:35)
[2017-06-04] MEDS ORDERED: MIDAZOLAM 2 MG/2 ML VIAL ONE ×2 (10:31→10:35)
[2017-06-04] MEDS ORDERED: EPOETIN ALFA 10,000 UNIT/ML VIAL IVP ONE (10:45)
--- NOTE | 2017-06-04 10:45 | SOAPPROG ---
SOAP Progress Note Assessment/Plan: Assessment/Plan: Likely ESRD: pt previously known to have CKD stage 5 in 2014 with Cr at that time stable at 2.7, had 2.6g protinuria, negative serological workup. She refused biopsy at the time and has not returned to clinic since 11/2014. She now presents with acute smptoms of N/V/D and Cr of 14, UA with proteinuria, acidosis, and hyperkalemia. It seems most likely that her symptoms are caused by uremia. With IVFs, Cr down to only 12.9, still high BUN. - I discussed with pt her current condition, and after much discussion, she has agreed to proceed with dialysis. - Will plan on tunneled catheter tomorrow followed by starting HD. - We started to discuss options of dialysis, including home dialysis options, which will be an ongoing discussion after her discharge. - Will today continue IVFs with bicarb. - Renal US reviewed, very little cortex left. - Avoid MOM, morphine, demerol, NSAIDs, contrast, aminoglycosides, fleets, hypotension and other nephrotoxins. HTN: uncontorlled, pt on no meds at home. Now better with labetalol, will continue to monitor. Hyperkalemia; K improved with IVFs and bicarb, will continue to monitor. Metabolic acidosis: improving with bicarb, will further modulate with HD. Anemia: Pt with Hgb down to 5.5 - Agree with transfusion. - GI following, appreciate their input. - Will give epo. Subjective: No acute events overnight. Pt states she is feeling better, more clear, less nausea but still with loose stools. She still feels dry. She states that her stool is not black this morning. Objective: Vital Signs Temp Pulse Resp BP Pulse Ox 36.7 C 61 18 131/81 H 96 06/04/17 07:34 06/04/17 07:34 06/04/17 07:34 06/04/17 07:34 06/04/17 07:34 Laboratory Results 06/04/17 04:40 06/04/17 04:40 06/03/17 06/04/17 06/05/17 05:59 05:59 05:59 Intake Total 2070 Output Total 300 Balance 1770 General: alert and oriented, no acute distress Eyes; EOMI, PERRL OP: clear CV: RRR REsp: nonlabored respirations on RA Abd; SOft, NT Ext; no edema BLE Neuro: CN II-XII Grossly intact Psych: cooperative, appropriate mood and affect ICD10 Worksheet Patient Problems: Problems Problem Status Onset Hypertension Acute Vomiting Acute
--- NOTE | 2017-06-04 10:54 | HOSPPROG ---
Hospitalist Progress Note Assessment/Plan: 66 yo f w known stage 4 ckd presents w melena, symptomatic uremia uremia: this likely represents progression to esrd no need for urgent HD tunneled cath and HD tomorrow anemia: acute blood loss anemia superimposed on chronic anemia 2/2 renal disease suspect quintin sampson tear given vomiting GI to scope start ppi transfuse additional 2 units proph: scd's htn: bp's have normalized inpt: Subjective: case d/w dr benton. tele: no events (interp by me) Objective: Vital Signs Temp Pulse Resp BP Pulse Ox 36.7 C 61 18 131/81 H 96 06/04/17 07:34 06/04/17 07:34 06/04/17 07:34 06/04/17 07:34 06/04/17 07:34 Laboratory Results 06/04/17 04:40 06/04/17 04:40 06/03/17 06/04/17 06/05/17 05:59 05:59 05:59 Intake Total 0 Output Total 300 Balance 1770 - Physical Exam Constitutional: no apparent distress, appears nourished Eyes: PERRL, anicteric sclera Ears, Nose, Mouth, Throat: moist mucous membranes, hearing normal Cardiovascular: regular rate and rhythym, no murmur, rub, or gallop Respiratory: no respiratory distress, no rales or rhonchi Gastrointestinal: normoactive bowel sounds, soft, non-tender abdomen Genitourinary: No mckenzie in urethra Skin: warm, normal color Musculoskeletal: full muscle strength, no muscle tenderness Neurologic: AAOx3 ICD10 Worksheet Patient Problems: Problems Problem Status Onset Hypertension Acute Vomiting Acute
[2017-06-04] MEDS: PANTOPRAZOLE SODIUM 40 MG in NS 100 ML IV SCH ×2 (11:21→22:19)
--- NOTE | 2017-06-04 17:08 | ASMTCMCOM ---
CM Note CM Note Notes: 66 year old female who was admitted due to vomiting, anemia, HTN, stage 4 CKD. Patient has a hx of splenic rupture, appy, c-sec. May need dialysis. Patient not taking HTN medications. Case Management to follow for possible discharge needs. Date Signed: 06/04/2017 09:43 AM Electronically Signed By:Olimpia Simons
[2017-06-04 17:31] LABS: HEMATOCRIT 29.2 % (38.0-47.0); HEMOGLOBIN 10.3 g/dL (12.6-16.3); MEAN CELL HEMOGLOBIN CONCENTR. 35.3 g/dL (32.4-36.7); MEAN CELL VOLUME 85.1 fL (81.5-99.8); RED BLOOD CELL COUNT 3.43 10^6/uL (4.18-5.33); RED CELL DISTRIBUTION WIDTH 14.3 % (11.5-15.2)
--- NOTE | 2017-06-04 18:28 | GPN ---
[f rep st] PROCEDURE NOTE PROCEDURE PERFORMED: Esophagogastroduodenoscopy with biopsy. PREOPERATIVE DIAGNOSES: Nausea, vomiting, melena with anemia. POSTOPERATIVE DIAGNOSES: Small hiatal hernia. Mild gastritis. Otherwise normal upper endoscopy. S tatus post antral biopsies. INDICATIONS: A 66-year-old woman with acute renal failure on chronic renal failure. Patient with a history of hypertension and chronic kidney disease, stage 4. The patient with a several week history of nausea, vomiting secondary to worsening renal function, renal failure, and azotemia. The patient denied any abdominal pain or discomfort, was having several episodes of melenic stool. She was foun d to be anemic, did require blood transfusion. Presents now for diagnostic endoscopy. PHYSICAL EXAM: VITAL SIGNS: Stable. LUNGS: Clear. CARDIAC: Normal S1, S2 without murmur. PERMIT: The procedure was explained to the patient. The risks and benefits of the procedure outline d to the patient. Informed consent was obtained. PREOPERATIVE MEDICATIONS: Fentanyl 50 mcg, Versed 2 mg. FINDINGS OF PROCEDURE: The patient was placed in the left lateral decubitus position. GIF-180 video scope was passed in the oropharynx under direct visualization into the proximal esophagus. Esophagu s was normal. Normal GE junction. A small hiatal hernia. Endoscope was passed in the stomach. The re was no evidence of any blood or old blood in the stomach. She had mild erythema in the antrum. E ndoscope was passed to the pylorus. First and 2nd portions of the duodenum were normal. Endoscope w as brought back in the stomach. Retroflex view of the stomach revealed a normal angularis, fundus, a nd cardia. Endoscope was un-retroflexed. Biopsies were taken of the antrum and body for H pylori an d histology. Endoscope was withdrawn. IMPRESSION: Essentially normal upper endoscopy. Small hiatal hernia. Mild antral gastritis status post biopsy of the antrum and body for Helicobacter pylori and histology. RECOMMENDATIONS: Renal diet. Will sign off. Please call with any further problems or questions. /[id number]/MODL
[2017-06-04] MEDS ORDERED: ZOLPIDEM TARTRATE 5 MG TAB PO ONE (22:00)
[2017-06-04] MEDS ORDERED: PANTOPRAZOLE SODIUM 40 MG TAB PO ONE (22:09)
[2017-06-04] MEDS: PANTOPRAZOLE SODIUM 40 MG TAB PO SCH (22:18)
[2017-06-05 02:15] LABS: HEPATITIS B SURFACE ANTIBODY NEGATIVE (NEGATIVE)
[2017-06-05 05:26] LABS: % IMMATURE GRANULYOCYTES 0.5 % (0.0-1.1); ABSOLUTE IMMATURE GRANULOCYTES 0.05 10^3/uL (0.00-0.10); ADD DIFF? NO; ADD MORPH? NO; ADD SCAN? NO; ATYPICAL LYMPHOCYTE FLAG 0 (0-99); FRAGMENT RBC FLAG 0 (0-99); HEMATOCRIT 30.7 % (38.0-47.0); HEMOGLOBIN 10.9 g/dL (12.6-16.3); LEFT SHIFT FLG 0 (0-99); LIPEMIA HEMOLYSIS FLAG 90 (0-99); MEAN CELL HEMOGLOBIN 30.4 pg (27.9-34.1); MEAN CELL HEMOGLOBIN CONCENTR. 35.5 g/dL (32.4-36.7); MEAN CELL VOLUME 85.8 fL (81.5-99.8); MEAN PLATELET VOLUME 11.3 fL (8.7-11.7); PLATELET CLUMPS FLAG 0 (0-99); PLATELET COUNT 260 10^3/uL (150-400); RED BLOOD CELL COUNT 3.58 10^6/uL (4.18-5.33); RED CELL DISTRIBUTION WIDTH 14.9 % (11.5-15.2)
[2017-06-05 05:37] LABS: ANION GAP 18 mEq/L (8-16); CARBON DIOXIDE 18 mEq/l (22-31); CHLORIDE 99 mEq/L (97-110); GLOMERULAR FILTRATION RATE 3; GLUCOSE 86 mg/dL (70-100); POTASSIUM 4.3 mEq/L (3.5-5.2); SODIUM 135 mEq/L (134-144)
[2017-06-05 05:44] LABS: CALCIUM 5.7 mg/dL (8.5-10.4); CREATININE 12.2 mg/dL (0.6-1.0)
[2017-06-05] MEDS: PANTOPRAZOLE SODIUM 40 MG TAB PO SCH ×2 (08:57→22:21)
[2017-06-05] MEDS ORDERED: PANTOPRAZOLE SODIUM 40 MG TAB PO SCH (09:00)
--- NOTE | 2017-06-05 09:17 | SOAPPROG ---
JOCELINE Progress Note Assessment/Plan: Assessment:Plan: ESRD-to start Hd today -high risk for dialysis dysequilibrium -low BFR/DFR, short treatment times -daily while in patient Access-for tunneled catheter today -preserve veins in L arm for future AVF Disposition-patient lives in [place] -discussed dialysis options -she wishes to go to the [facility], , fax 06/05/17 09:13 Subjective: nervous, anxious Objective: Vital Signs Temp Pulse Resp BP Pulse Ox 36.7 C 78 18 176/114 H 91 L 06/05/17 07:54 06/05/17 07:54 06/05/17 07:54 06/05/17 07:54 06/05/17 07:54 Laboratory Results 06/05/17 05:15 06/05/17 05:15 06/04/17 06/05/17 06/06/17 05:59 05:59 05:59 Intake Total 2070 1250 Output Total 300 1150 Balance 1770 100 Physical Exam - Physical Exam General Appearance: alert, no apparent distress, thin EENT: normal ENT inspection Neck: normal inspection Respiratory: lungs clear, normal breath sounds, No respiratory distress Cardiac/Chest: regular rate, rhythm, No diastolic murmur, No systolic murmur Abdomen: normal bowel sounds, non-tender, soft Skin: normal color, warm/dry Extremities: No swelling Neuro/Psych: no motor/sensory deficits, alert, normal mood/affect ICD10 Worksheet Patient Problems: Problems Problem Status Onset Hypertension Acute Vomiting Acute
[2017-06-05 09:44] LABS: APTT 29.6 SEC (23.0-38.0); INR 1.16 (0.83-1.16); PROTIME(PATIENT) 14.8 SEC (12.0-15.0)
[2017-06-05] MEDS ORDERED: HEPARIN 50,000 UNIT/10 ML VIAL ONE ×2 (10:34→17:58)
[2017-06-05] MEDS ORDERED: LIDOCAINE 1% 300 MG/30 ML SDV ONE (10:43)
[2017-06-05] MEDS ORDERED: fentaNYL 100 MCG/2 ML INJ ONE (10:53)
[2017-06-05] MEDS ORDERED: MIDAZOLAM 2 MG/2 ML VIAL ONE (10:53)
--- NOTE | 2017-06-05 11:47 | POSTOPPROG ---
Post Op Note Date of Operation: 06/05/17 Surgeon: Socorro Laguerre Anesthesia: IV Sedation Pre-op Diagnosis: esrd Post-op Diagnosis: same Indication: needs dialysis Procedure: tunneled dialysis catheter placement Findings: short distance for access due to height and breast implants Inf/Abcess present in the surg proc area at time of surgery?: No Depth: Superfical (Skin SQ) EBL: Minimal Complications: none
--- NOTE | 2017-06-05 15:06 | HOSPPROG ---
Hospitalist Progress Note Assessment/Plan: #ESRD: HD line placed today and HD. High-risk for disequilibrium #Accelerated HTN: due to above. PRN hydral #Symptomatic uremia: plan for HD #Metabolic acidosis: was on bicarb gtt #Acute blood loss & and anemia renal disease: s/p 3 units RBCs. EGD with antral gastritis. H pylori pending. PPI #Diet: renal #DVT ppx: SQH #Disp: warrants inpt admission with Subjective: no CP, SOB, or headache Objective: Vital Signs Temp Pulse Resp BP Pulse Ox 37.0 C 70 17 155/95 H 91 L 06/05/17 11:48 06/05/17 13:29 06/05/17 13:29 06/05/17 13:29 06/05/17 13:29 Laboratory Results 06/05/17 05:15 06/05/17 05:15 06/04/17 06/05/17 06/06/17 05:59 05:59 05:59 Intake Total 2070 1250 Output Total 300 1150 Balance 1770 100 PT 14.8 SEC (12.0-15.0) 06/05/17 09:15 INR 1.16 (0.83-1.16) 06/05/17 09:15 - Physical Exam Constitutional: no apparent distress Eyes: PERRL Ears, Nose, Mouth, Throat: moist mucous membranes Cardiovascular: regular rate and rhythym, no murmur, rub, or gallop, No edema Respiratory: no respiratory distress, no rales or rhonchi Gastrointestinal: normoactive bowel sounds, soft, non-tender abdomen Genitourinary: no bladder fullness Skin: warm Musculoskeletal: other (right elbow swollen, no warmth or redness) Neurologic: AAOx3 Psychiatric: interacting appropriately ICD10 Worksheet Patient Problems: Problems Problem Status Onset Hypertension Acute Vomiting Acute
--- NOTE | 2017-06-05 15:35 | ASMTCMCOM ---
CM Note CM Note Notes: The [facility] called and needed patient info faxed to them: Hep B, H & P, Chest x-ray. Patient has not had an x-ray as yet. Patient would like to go to dialysis on a T/T/S schedule at 12:00. She will arrive on her 1st visit at 11:20 to complete additional paperwork. [phone]; . The chest x-ray still needs to be sent. Date Signed: 06/05/2017 03:34 PM Electronically Signed By:Olimpia Simons
[2017-06-05] MEDS ORDERED: LIDOCAINE 1% *Not for Epidural 20 ML MDV ONE (17:58)
[2017-06-05] MEDS: ACETAMINOPHEN 500 MG TAB PO PRN (22:39)
[2017-06-06 05:24] LABS: % IMMATURE GRANULYOCYTES 0.4 % (0.0-1.1); ABSOLUTE IMMATURE GRANULOCYTES 0.04 10^3/uL (0.00-0.10); ADD DIFF? NO; ADD MORPH? NO; ADD SCAN? NO; ATYPICAL LYMPHOCYTE FLAG 0 (0-99); FRAGMENT RBC FLAG 0 (0-99); HEMATOCRIT 30.3 % (38.0-47.0); HEMOGLOBIN 10.4 g/dL (12.6-16.3); LEFT SHIFT FLG 0 (0-99); LIPEMIA HEMOLYSIS FLAG 90 (0-99); MEAN CELL HEMOGLOBIN 30.1 pg (27.9-34.1); MEAN CELL HEMOGLOBIN CONCENTR. 34.3 g/dL (32.4-36.7); MEAN CELL VOLUME 87.8 fL (81.5-99.8); MEAN PLATELET VOLUME 11.5 fL (8.7-11.7); PLATELET CLUMPS FLAG 0 (0-99); PLATELET COUNT 241 10^3/uL (150-400); RED BLOOD CELL COUNT 3.45 10^6/uL (4.18-5.33); RED CELL DISTRIBUTION WIDTH 14.7 % (11.5-15.2)
[2017-06-06 05:42] LABS: ALBUMIN 2.7 g/dL (3.5-5.0); ANION GAP 15 mEq/L (8-16); CALCIUM 6.2 mg/dL (8.5-10.4); CARBON DIOXIDE 20 mEq/l (22-31); CHLORIDE 97 mEq/L (97-110); GLOMERULAR FILTRATION RATE 4; GLUCOSE 95 mg/dL (70-100); POTASSIUM 4.3 mEq/L (3.5-5.2); SODIUM 132 mEq/L (134-144)
[2017-06-06 06:03] LABS: CREATININE 10.3 mg/dL (0.6-1.0)
--- NOTE | 2017-06-06 08:16 | SOAPPROG ---
JOCELINE Progress Note Assessment/Plan: Assessment:Plan: ESRD-started Hd yesterday -tolerated first treatment well -low BFR/DFR, short treatment times -daily while in patient -plan for Hd again tomorrow Access-s/p tunneled catheter yesterday -preserve veins in L arm for future AVF R Knee pain-warm, swollen -possibe gout -check Xray -check uric acid level -should get better with dialysis -pain control Disposition-patient lives in [place] -discussed dialysis options -she wishes to go to the [facility], , fax [phone] -plans for TTS at 12n, arrive 11:20 for first treatment for orientation, admission paperwork 06/06/17 08:16 Subjective: R knee pain Objective: Vital Signs Temp Pulse Resp BP Pulse Ox 36.7 C 72 15 168/57 H 97 06/06/17 04:00 06/06/17 04:00 06/06/17 04:00 06/06/17 04:00 06/06/17 04:00 Laboratory Results 06/06/17 05:16 06/06/17 05:16 06/05/17 06/06/17 06/07/17 05:59 05:59 05:59 Intake Total 1250 490 Output Total 1150 400 Balance 100 90 PT 14.8 SEC (12.0-15.0) 06/05/17 09:15 INR 1.16 (0.83-1.16) 06/05/17 09:15 Physical Exam - Physical Exam General Appearance: WD/WN, alert, no apparent distress, thin EENT: normal ENT inspection Neck: normal inspection Respiratory: lungs clear, normal breath sounds, No respiratory distress Cardiac/Chest: regular rate, rhythm, No diastolic murmur, No systolic murmur Abdomen: normal bowel sounds, non-tender, soft Skin: normal color, warm/dry Extremities: other (R knee warm with mild swelling), No swelling Neuro/Psych: no motor/sensory deficits, alert, normal mood/affect ICD10 Worksheet Patient Problems: Problems Problem Status Onset Hypertension Acute Vomiting Acute
--- NOTE | 2017-06-06 08:23 | HOSPPROG ---
Hospitalist Progress Note Assessment/Plan: #ESRD: HD line placed today and HD. High-risk for disequilibrium. HD again tomorrow and can likely DC #Accelerated HTN: due to above. PRN hydral #Symptomatic uremia: plan for HD #Metabolic acidosis: was on bicarb gtt #Acute blood loss & and anemia renal disease: s/p 3 units RBCs. EGD with antral gastritis. H pylori pending. PPI #Right knee swelling: new overnight. Uric acid NL. Dr. Whalen tapped, less suspicion for infection. Gram stain and crystals pending #Diet: renal #DVT ppx: SQH #Disp: warrants inpt admission with uremia warranting ESRD Critical care time spent: 30 min bedside with pt, d/w Dr. Whalen and Dr. Palmer Subjective: c/o right knee swelling and pain yesterday Objective: Vital Signs Temp Pulse Resp BP Pulse Ox 36.7 C 72 15 168/57 H 97 06/06/17 04:00 06/06/17 04:00 06/06/17 04:00 06/06/17 04:00 06/06/17 04:00 Laboratory Results 06/06/17 05:16 06/06/17 05:16 06/05/17 06/06/17 06/07/17 05:59 05:59 05:59 Intake Total 1250 490 Output Total 1150 400 Balance 100 90 PT 14.8 SEC (12.0-15.0) 06/05/17 09:15 INR 1.16 (0.83-1.16) 06/05/17 09:15 - Physical Exam Constitutional: chronically ill appearing Eyes: PERRL Ears, Nose, Mouth, Throat: moist mucous membranes Cardiovascular: regular rate and rhythym, No edema Respiratory: no respiratory distress, no rales or rhonchi Gastrointestinal: normoactive bowel sounds Genitourinary: no bladder fullness Musculoskeletal: other (right knee with moderate effusion, mild warmth and erythema. Some pain with flexion) Neurologic: AAOx3 Psychiatric: interacting appropriately ICD10 Worksheet Patient Problems: Problems Problem Status Onset Hypertension Acute Vomiting Acute
[2017-06-06] MEDS: PANTOPRAZOLE SODIUM 40 MG TAB PO SCH ×2 (09:46→22:28)
[2017-06-06] MEDS: oxyCODONE IR 5 MG TAB PO PRN ×4 (10:07→22:28)
[2017-06-06] MEDS ORDERED: hydrALAZINE 25 MG TAB PO PRN (12:44)
--- NOTE | 2017-06-06 13:17 | GCON ---
[f rep st] CONSULTATION CONSULTATION PLUS PROCEDURE DATE OF CONSULTATION: 06/06/2017 REASON FOR CONSULTATION: Right knee effusion. HISTORY OF PRESENT ILLNESS: Patient is a 66-year-old with chronic renal failure undergoing dialysis who developed a right knee effusion without any specific injury or inciting factors. Coincident with the effusion, she was having knee pain. She has a past history relevant for an ACL reconstruction b ut no recent problems regarding her knee. PHYSICAL EXAMINATION: There is a moderate effusion of the right knee. There is no significant eryth marci with the exception of some mild redness along the lateral aspect of the proximal tibia, not in co ntinuation with the knee joint. Her distal neurovascular exam is intact. She does have some pain wi th passive flexion and extension. ASSESSMENT: Right knee effusion. PLAN: Under sterile technique, the knee was aspirated. Approximately 20 mL of straw colored fluid w as aspirated. After aspiration of the fluid, her knee pain was improved. Fluid was sent to lab for appropriate evaluation. /[id number]/MODL
[2017-06-06 13:18] LABS: WBC, SYNOVIAL FLUID 17660 /mm3 (0-150)
[2017-06-06] MEDS ORDERED: HEPARIN 50,000 UNIT/10 ML VIAL ONE (13:21)
[2017-06-06] MEDS: predniSONE 10 MG TAB PO SCH ×2 (22:28→22:33)
[2017-06-07] MEDS: ACETAMINOPHEN 500 MG TAB PO PRN (00:08)
[2017-06-07 05:25] LABS: % IMMATURE GRANULYOCYTES 0.3 % (0.0-1.1); ABSOLUTE IMMATURE GRANULOCYTES 0.04 10^3/uL (0.00-0.10); ADD DIFF? NO; ADD MORPH? NO; ADD SCAN? NO; ATYPICAL LYMPHOCYTE FLAG 0 (0-99); FRAGMENT RBC FLAG 0 (0-99); HEMATOCRIT 31.7 % (38.0-47.0); HEMOGLOBIN 10.3 g/dL (12.6-16.3); LEFT SHIFT FLG 0 (0-99); LIPEMIA HEMOLYSIS FLAG 80 (0-99); MEAN CELL HEMOGLOBIN 30.1 pg (27.9-34.1); MEAN CELL HEMOGLOBIN CONCENTR. 32.5 g/dL (32.4-36.7); MEAN CELL VOLUME 92.7 fL (81.5-99.8); MEAN PLATELET VOLUME 11.5 fL (8.7-11.7); PLATELET CLUMPS FLAG 0 (0-99); PLATELET COUNT 242 10^3/uL (150-400); RED BLOOD CELL COUNT 3.42 10^6/uL (4.18-5.33); RED CELL DISTRIBUTION WIDTH 14.6 % (11.5-15.2)
[2017-06-07 05:53] LABS: ALBUMIN 2.7 g/dL (3.5-5.0); ANION GAP 15 mEq/L (8-16); CALCIUM 6.8 mg/dL (8.5-10.4); CARBON DIOXIDE 21 mEq/l (22-31); CHLORIDE 97 mEq/L (97-110); GLOMERULAR FILTRATION RATE 5; GLUCOSE 97 mg/dL (70-100); POTASSIUM 4.8 mEq/L (3.5-5.2); SODIUM 133 mEq/L (134-144)
--- NOTE | 2017-06-07 09:05 | SOAPPROG ---
JOCELINE Progress Note Assessment/Plan: Assessment: 1. ESRD. 3rd HD today. Has TTS 12 noon slot at [facility]. I discussed modality choice, offered PD. She prefers to stay with in center dialysis for now. Has tunneled catheter. Needs AVF. Have left message for Dr. Senior regarding placing AVF. Would be nice if this could be done prior to discharge. 2. HTN. Improved. Start low dose lisinopril. 3. Anemia. S/p EGD. Mild gastritis. On PPI. s/p tx. Procrit as outpatient. Plan: 06/07/17 09:03 06/07/17 09:04 Subjective: Seen and examined on dialysis. 3rd rx today. No n/v. Feels much better. Knee much better after tap, still swollen though and can't walk. No itching. Objective: Vital Signs Temp Pulse Resp BP Pulse Ox 36.7 C 68 15 154/85 H 91 L 06/07/17 04:00 06/07/17 04:00 06/07/17 04:00 06/07/17 04:00 06/07/17 04:00 Microbiology 06/06/17 12:20 Gram Stain - Final Knee - Aspirate Laboratory Results 06/07/17 05:14 06/07/17 05:14 06/06/17 06/07/17 06/08/17 05:59 05:59 05:59 Intake Total 490 580 Output Total 400 450 Balance 90 130 PT 14.8 SEC (12.0-15.0) 06/05/17 09:15 INR 1.16 (0.83-1.16) 06/05/17 09:15 On dialysis Qb 250 3K 3Ca Comfortable wf RRR, no m/g/r CTAB Abdom soft, nt No edema ICD10 Worksheet Patient Problems: Problems Problem Status Onset Hypertension Acute Vomiting Acute
[2017-06-07] MEDS: oxyCODONE IR 5 MG TAB PO PRN ×2 (11:26→19:17)
[2017-06-07] MEDS: SODIUM CHLORIDE 1,000 MG TAB PO SCH ×2 (11:27→18:06)
[2017-06-07] MEDS: LISINOPRIL 5 MG TAB PO SCH (11:28)
[2017-06-07] MEDS: PANTOPRAZOLE SODIUM 40 MG TAB PO SCH ×2 (11:28→20:14)
[2017-06-07] MEDS: predniSONE 10 MG TAB PO SCH (11:28)
--- NOTE | 2017-06-07 12:02 | SOAPPROG ---
JOCELINE Progress Note Assessment/Plan: Assessment: 66-year-old female with chronic renal failure in need of an AV fistula/risks and options fully discussed/presently on dialysis Vein mapping pending Plan: Left arm AV fistula in the a.m. 06/07/17 12:01 Objective: Vital Signs Temp Pulse Resp BP Pulse Ox 36.7 C 72 16 154/85 H 93 06/07/17 11:22 06/07/17 11:22 06/07/17 11:22 06/07/17 11:22 06/07/17 11:22 Microbiology 06/06/17 12:20 Gram Stain - Final Knee - Aspirate Laboratory Results 06/07/17 05:14 06/07/17 05:14 06/06/17 06/07/17 06/08/17 05:59 05:59 05:59 Intake Total 490 580 Output Total 400 450 325 Balance 90 130 -325 PT 14.8 SEC (12.0-15.0) 06/05/17 09:15 INR 1.16 (0.83-1.16) 06/05/17 09:15 ICD10 Worksheet Patient Problems: Problems Problem Status Onset Hypertension Acute Vomiting Acute
--- NOTE | 2017-06-07 16:29 | ASMTCMCOM ---
CM Note CM Note Notes: Received a call from Geoff Solares RN at the [facility] [phone]. Pt is set up to start dialysis there after her [facility] d/c. He would prefer she not start dialysis there on a Monday. If pt discharges on , the Center will try to schedule her for a Monday evening dialysis. She will then start her / schedule. He asked to be informed of pt's d/c plan. Per RN, pt is pretty sick and not likely to d/c soon. She continues to have daily dialysis. Date Signed: 06/07/2017 04:29 PM Electronically Signed By:LIZ Osuna
[2017-06-07] MEDS ORDERED: HEPARIN 50,000 UNIT/10 ML VIAL ONE (16:57)
--- NOTE | 2017-06-07 17:19 | HOSPPROG ---
Hospitalist Progress Note Assessment/Plan: #ESRD: HD again Wed. Dr. Senior to place fistula #Accelerated HTN: due to above. PRN hydral #Symptomatic uremia: plan for HD #Metabolic acidosis: was on bicarb gtt #Acute blood loss & and anemia renal disease: s/p 3 units RBCs. EGD with antral gastritis. H pylori pending. PPI #Right knee swelling: pseudogout. Pred x 5 days #Diet: renal #DVT ppx: SQH #Disp: warrants inpt admission with uremia warranting ESRD Subjective: less pain in knee, can bear more weight Objective: Vital Signs Temp Pulse Resp BP Pulse Ox 36.9 C 81 18 138/83 H 90 L 06/07/17 15:50 06/07/17 15:50 06/07/17 15:50 06/07/17 15:50 06/07/17 15:50 Microbiology 06/06/17 12:20 Gram Stain - Final Knee - Aspirate Laboratory Results 06/07/17 05:14 06/07/17 05:14 06/06/17 06/07/17 06/08/17 05:59 05:59 05:59 Intake Total 490 580 Output Total 400 450 525 Balance 90 130 -525 PT 14.8 SEC (12.0-15.0) 06/05/17 09:15 INR 1.16 (0.83-1.16) 06/05/17 09:15 - Physical Exam Constitutional: chronically ill appearing, other (appears brighter today) Eyes: PERRL Ears, Nose, Mouth, Throat: moist mucous membranes Cardiovascular: regular rate and rhythym, No edema Respiratory: no respiratory distress Gastrointestinal: normoactive bowel sounds Genitourinary: no bladder fullness Skin: warm Musculoskeletal: other (right knee less swollen, mild warm) Neurologic: AAOx3, CN II-XII Intact ICD10 Worksheet Patient Problems: Problems Problem Status Onset Hypertension Acute Vomiting Acute
[2017-06-07] MEDS ORDERED: ZOLPIDEM TARTRATE 5 MG TAB PO ONE (21:17)
[2017-06-08 05:19] LABS: % IMMATURE GRANULYOCYTES 0.4 % (0.0-1.1); ABSOLUTE IMMATURE GRANULOCYTES 0.05 10^3/uL (0.00-0.10); ADD DIFF? NO; ADD MORPH? NO; ADD SCAN? NO; ATYPICAL LYMPHOCYTE FLAG 0 (0-99); FRAGMENT RBC FLAG 0 (0-99); HEMATOCRIT 34.5 % (38.0-47.0); HEMOGLOBIN 11.3 g/dL (12.6-16.3); LEFT SHIFT FLG 0 (0-99); LIPEMIA HEMOLYSIS FLAG 80 (0-99); MEAN CELL HEMOGLOBIN 29.7 pg (27.9-34.1); MEAN CELL HEMOGLOBIN CONCENTR. 32.8 g/dL (32.4-36.7); MEAN CELL VOLUME 90.8 fL (81.5-99.8); MEAN PLATELET VOLUME 11.7 fL (8.7-11.7); PLATELET CLUMPS FLAG 0 (0-99); PLATELET COUNT 338 10^3/uL (150-400); RED CELL DISTRIBUTION WIDTH 14.2 % (11.5-15.2)
[2017-06-08 05:25] LABS: ALBUMIN 3.2 g/dL (3.5-5.0); ANION GAP 16 mEq/L (8-16); CALCIUM 7.5 mg/dL (8.5-10.4); CARBON DIOXIDE 23 mEq/l (22-31); CHLORIDE 95 mEq/L (97-110); CREATININE 6.2 mg/dL (0.6-1.0); GLOMERULAR FILTRATION RATE 7; GLUCOSE 111 mg/dL (70-100); POTASSIUM 4.6 mEq/L (3.5-5.2); SODIUM 134 mEq/L (134-144)
[2017-06-08] MEDS ORDERED: ceFAZolin 2 GM/DEXTROSE 100 ML IV ONE (06:00)
[2017-06-08] MEDS ORDERED: THROMBIN (BOVINE) 20,000 UNIT VIAL TP ONE (08:11)
[2017-06-08] MEDS ORDERED: THROMBIN (BOVINE) 5,000 UNIT VIAL TP ONE (08:12)
[2017-06-08] MEDS ORDERED: PROTAMINE SULFATE 50 MG/5 ML VIAL IVP ONE (08:12)
[2017-06-08] MEDS ORDERED: BUPIVACAINE 0.5% 30 ML SDV ONE (08:12)
[2017-06-08] MEDS ORDERED: PAPAVERINE HCL 60 MG/2 ML SDV ONE (08:12)
--- NOTE | 2017-06-08 09:57 | SOAPPROG ---
SOAP Progress Note Assessment/Plan: Assessment/Plan: ESRD: pt previously known to have CKD stage 5 in 2014 with Cr at that time stable at 2.7, had 2.6g protinuria, negative serological workup. She refused biopsy at the time and has not returned to clinic since 11/2014. She now presents with acute smptoms of N/V/D and Cr of 14, UA with proteinuria, acidosis , and hyperkalemia. Her symptoms are likely due to uremia, her US reviewed and had very little cortex left. Pt started on HD this week and feeling better. - Pt seen getting HD #4 today. - Pt has a spot at [facility] for noon on TTS. - Next HD will be on Monday. - Pt has tunneled catheter, appreciate Dr. Senior placing fistula before her discharge. HTN: improved, on lisinopril, will continue to monitor. Hyponatremia: Sodium up to 134, will modulate with HD and d/c sodium chloride tablets. Anemia: Hgb now stable. SARAH: Pt had hypocalcemia and hyperphosphatemia with markedly elevated PTH. Electrolytes improving with HD, will continue to monitor without phos binder yet. Subjective: No acute events overnight. Pt notes her knee is getting better but still not at baseline. She is tolerating HD well and has no issues. Objective: Vital Signs Temp Pulse Resp BP Pulse Ox 36.6 C 81 14 131/85 H 90 L 06/08/17 07:45 06/08/17 07:45 06/08/17 07:45 06/08/17 07:45 06/08/17 07:45 Microbiology 06/06/17 12:20 Gram Stain - Final Knee - Aspirate Laboratory Results 06/08/17 04:54 06/08/17 04:54 06/07/17 06/08/17 06/09/17 05:59 05:59 05:59 Intake Total 580 940 Output Total 450 725 30 Balance 130 215 -30 PT 14.8 SEC (12.0-15.0) 06/05/17 09:15 INR 1.16 (0.83-1.16) 06/05/17 09:15 General: alert and oriented, no acute distress Eyes; EOMI, PERRL OP: Clear CV: RRR Resp: nonlabored respirations on RA Abd: soft, NT/ND Ext: no edema BLE Neuro: CN II-XII grossly intact, no asterixis Psych; cooperative, appropriate mood and affect MSK: R knee with edema and warmth but no erythema Access: RIJ tunneled catheter ICD10 Worksheet Patient Problems: Problems Problem Status Onset Hypertension Acute Vomiting Acute
[2017-06-08] MEDS ORDERED: CEFAZOLIN 2 GM/DEXTROSE/100 ML BAG IV ONE (11:37)
[2017-06-08] MEDS ORDERED: NS 1,000 ML IV ONE (11:41)
--- NOTE | 2017-06-08 11:43 | PDANEPAE ---
ANE History of Present Illness ESRD vascular access ANE Past Medical History - Cardiovascular History Hx Hypertension: Yes - Pulmonary History Hx Oxygen in Use at Home: No Hx Sleep Apnea: No Sleep Apnea Screening Result - Last Documented: Positive - Endocrine History Hx Diabetes: No - Renal History Hx Renal Disorders: Yes - Chronic Pain History Chronic Pain: No ANE Review of Systems Review of Systems: - Exercise capacity METS (RN): 2 METS ANE Patient History - Allergies Allergies/Adverse Reactions: No Known Allergies Allergy (Unverified 09/23/11 17:09) - Home Medications Home Medications: NK [No Known Home Meds] 06/03/17 [Last Taken Unknown] - NPO status NPO Since - Liquids (Date): 06/07/17 NPO Since - Liquids (Time): 23:00 NPO Since - Solids (Date): 06/07/17 NPO Since - Solids (Time): 23:00 - Smoking Hx Smoking Status: Never smoked ANE Labs/Vital Signs - Labs Result Diagrams: 06/08/17 04:54 06/08/17 04:54 - Vital Signs Blood Pressure: 144/88 Heart Rate: 78 Respiratory Rate: 91 O2 Sat (%): 90 Height: 152.4 cm Weight: 42.641 kg ANE Physical Exam - Airway Neck exam: FROM Mallampati Score: Class 2 Mouth exam: dentures - Pulmonary Pulmonary: no respiratory distress - Cardiovascular Cardiovascular: regular rate and rhythym - ASA Status ASA Status: III ANE Anesthesia Plan Anesthesia Plan: GA w LMA
[2017-06-08] MEDS ORDERED: fentaNYL 100 MCG/2 ML INJ ONE (11:46)
[2017-06-08] MEDS ORDERED: ONDANSETRON 4 MG/2 ML VIAL ONE (11:46)
[2017-06-08] MEDS ORDERED: DEXAMETHASONE 4 MG/ML VIAL ONE (11:46)
[2017-06-08] MEDS ORDERED: PROPOFOL 200 MG/20 ML VIAL ONE (11:46)
--- NOTE | 2017-06-08 11:47 | PDHPUP ---
History & Physical Update H&P update statement: This history and physical update is based on an assessment of the patient which was completed after admission or registration (within 24 hours), but prior to the surgery/procedure. H&P update: H&P reviewed & patient examined, no change in patient's condition since H&P completed
[2017-06-08] MEDS ORDERED: HEPARIN 10,000 UNIT/10 ML MDV ONE (12:26)
[2017-06-08] MEDS ORDERED: NALOXONE HCL 0.4 MG/ML INJ IVP PRN (13:15)
[2017-06-08] MEDS ORDERED: DEXAMETHASONE 4 MG/ML VIAL IVP PRN (13:15)
[2017-06-08] MEDS ORDERED: fentaNYL 100 MCG/2 ML INJ IVP PRN (13:15)
[2017-06-08] MEDS ORDERED: ONDANSETRON 4 MG/2 ML VIAL IVP PRN (13:15)
[2017-06-08] MEDS ORDERED: epHEDrine SULFATE 10 MG/ML SYR ONE (13:20)
[2017-06-08] MEDS ORDERED: PHENYLEPHRINE HCL 100 MCG/ML SYR ONE (13:20)
--- NOTE | 2017-06-08 13:41 | POSTOPPROG ---
Post Op Note Date of Operation: 06/08/17 Surgeon: Blayne Senior Electric Range Assembler: Jayda Braden Anesthesiologist: Joqauin Anesthesia: GET(General Endotracheal) Pre-op Diagnosis: Renal failure needing AVF for dialysis Post-op Diagnosis: Same Indication: Dialysis Procedure: left radiocephalic AVF placement Inf/Abcess present in the surg proc area at time of surgery?: No Depth: Deep Incisional (Fascial) EBL: Minimal
--- NOTE | 2017-06-08 13:47 | POSTANESTH ---
Post Anesthetic Evaluation Cardiovascular Status: Normal, Stable Respiratory Status: Normal, Stable Level of Consciousness/Mental Status: Can Participate in Eval Pain Control: Adequate, Prn Tx Ordered Nausea/Vomiting Control: Adequate, Prn Tx Ordered Complications Possibly Related to Anesthesia: None Noted
--- NOTE | 2017-06-08 13:57 | HOSPPROG ---
Hospitalist Progress Note Assessment/Plan: #ESRD: HD this morning. Fistula placed today #Accelerated HTN: due to above. PRN hydral #Symptomatic uremia: improved with HD #Metabolic acidosis: resolved with HD #Acute blood loss & and anemia renal disease: s/p 3 units RBCs. EGD with antral gastritis. H pylori pending. PPI #Right knee swelling: pseudogout. Day 3/ pred #Insomnia: melatonin #Diet: renal #DVT ppx: SQH #Disp: warrants inpt admission with uremia warranting ESRD Subjective: knee swelling much improved Objective: Vital Signs Temp Pulse Resp BP Pulse Ox 36.8 C 78 91 H 144/88 H 90 L 06/08/17 11:20 06/08/17 11:43 06/08/17 11:43 06/08/17 11:43 06/08/17 11:43 Microbiology 06/06/17 12:20 Gram Stain - Final Knee - Aspirate Laboratory Results 06/08/17 04:54 06/08/17 04:54 06/07/17 06/08/17 06/09/17 05:59 05:59 05:59 Intake Total 580 940 Output Total 450 725 30 Balance 130 215 -30 PT 14.8 SEC (12.0-15.0) 06/05/17 09:15 INR 1.16 (0.83-1.16) 06/05/17 09:15 - Physical Exam Constitutional: chronically ill appearing, cachectic Eyes: PERRL Ears, Nose, Mouth, Throat: moist mucous membranes Cardiovascular: regular rate and rhythym Respiratory: no respiratory distress Gastrointestinal: normoactive bowel sounds Genitourinary: no bladder fullness Skin: warm Musculoskeletal: other (right knee with minimal swelling) Neurologic: AAOx3, CN II-XII Intact Psychiatric: interacting appropriately ICD10 Worksheet Patient Problems: Problems Problem Status Onset Hypertension Acute Vomiting Acute
--- NOTE | 2017-06-08 14:12 | PDANEPAE ---
ANE History of Present Illness mandibular abscess ANE Past Medical History - Cardiovascular History Hx Hypertension: Yes - Pulmonary History Hx Oxygen in Use at Home: No Hx Sleep Apnea: No Sleep Apnea Screening Result - Last Documented: Positive - Endocrine History Hx Diabetes: No - Renal History Hx Renal Disorders: Yes - Chronic Pain History Chronic Pain: No ANE Review of Systems Review of Systems: - Exercise capacity METS (RN): 2 METS ANE Patient History - Allergies Allergies/Adverse Reactions: No Known Allergies Allergy (Unverified 09/23/11 17:09) - Home Medications Home Medications: NK [No Known Home Meds] 06/03/17 [Last Taken Unknown] - NPO status NPO Since - Liquids (Date): 06/07/17 NPO Since - Liquids (Time): 23:00 NPO Since - Solids (Date): 06/07/17 NPO Since - Solids (Time): 23:00 - Smoking Hx Smoking Status: Never smoked ANE Labs/Vital Signs - Labs Result Diagrams: 06/08/17 04:54 06/08/17 04:54 - Vital Signs Blood Pressure: 144/88 Heart Rate: 78 Respiratory Rate: 91 O2 Sat (%): 90 Height: 152.4 cm Weight: 42.641 kg ANE Physical Exam - Airway Neck exam: FROM Mallampati Score: Class 2 Mouth exam: poor dentition, small mouth opening - Pulmonary Pulmonary: no respiratory distress - Cardiovascular Cardiovascular: regular rate and rhythym - ASA Status ASA Status: III, E
[2017-06-08] MEDS ORDERED: HEPARIN 50,000 UNIT/10 ML VIAL ONE (15:26)
[2017-06-08] MEDS: oxyCODONE IR 5 MG TAB PO PRN ×2 (15:33→21:45)
[2017-06-08 16:32] VITALS: RESP 16
[2017-06-08] MEDS: SODIUM CHLORIDE 1,000 MG TAB PO SCH (18:23)
[2017-06-08] MEDS: MELATONIN 3 MG TAB PO SCH ×2 (18:24→21:45)
[2017-06-08] MEDS: predniSONE 10 MG TAB PO SCH (18:25)
[2017-06-08] MEDS: PANTOPRAZOLE SODIUM 40 MG TAB PO SCH ×2 (18:25→21:45)
[2017-06-08] MEDS: LISINOPRIL 5 MG TAB PO SCH (18:33)
--- NOTE | 2017-06-08 18:33 | GCON ---
[f rep st] CONSULTATION DATE OF CONSULTATION: 06/07/2017 HISTORY: The patient is a 66-year-old female who is on dialysis for chronic renal failure. She is i n need of an AV fistula and presently has a neck catheter, and has initiated dialysis. Risks and opt ions of the AV fistula have been fully discussed, and she wishes to proceed. She is nondiabetic, and she does not know the reason for her renal failure. PAST SURGICAL HISTORY: Includes a , laparotomy with splenectomy and appendectomy. ALLERGIES: None. PAST MEDICAL HISTORY: Includes kidney failure. No other major medical issues. FAMILY HISTORY: Positive for renal failure. REVIEW OF SYSTEMS: No other major medical problems on a full 10-point review of systems. Specifical ly, she does not smoke. PHYSICAL EXAMINATION: GENERAL: An alert 66-year-old female in no acute distress. HEAD AND NECK: R eveals no bruits. No icterus. No adenopathy. No oral lesions. Neck is supple. CHEST: Clear and symmetric. CARDIAC: Regular rhythm with a faint murmur. ABDOMEN: Soft and nontender. She has an abdominal surgical scar. EXTREMITIES: Full pulses. She has some vague clubbing. There is no signi ficant edema. NEUROLOGIC: Physiologic and symmetric. SKIN: No major lesions or rashes. PSYCH: A lert and cooperative, and oriented. IMPRESSION: Chronic renal failure, in need of arteriovenous fistula. The risks and options have bee n fully discussed. PLAN: AV fistula in the morning. MEDICATIONS: None. /[id number]/MODL
--- NOTE | 2017-06-08 19:07 | GOP ---
[f rep st] OPERATIVE REPORT DATE OF OPERATION: 06/08/2017 SURGEON: Blayne Senior MD MANPOWER DEVELOPMENT SPECIALIST MANAGER: Jayda Braden PA-C ANESTHESIOLOGIST: Dr. Nuñez. The patient noted to have appropriate vital signs. PREOPERATIVE DIAGNOSIS: Chronic renal failure. POSTOPERATIVE DIAGNOSIS: Chronic renal failure. PROCEDURE PERFORMED: 1. Left arm ultrasound vein mapping. 2. Left radiocephalic arteriovenous fistula. 3. ligation of collateral vein FINDINGS: The patient was found to have adequate cephalic vein in the forearm as well as in the upper arm. Her radial artery had a good pulse in it. DESCRIPTION OF PROCEDURE: The patient was taken to the operating room, where she received satisfactory general endotracheal anesthesia by Dr. Nuñez. She was placed in supine position with the left arm outstretched on an arm board, prepped and draped in the usual sterile fashion. The veins were evaluated as noted above, and she had multiple options above the elbow as well as at the forearm. It was elected to proceed with a radial cephalic AV fistula. A longitudinal incision was made over the radial artery which was then dissected free from underneath the superficial fascia, and proximal and distal control was obtained with Vesseloops. The vessel was quite atherosclerotic, looking almost like a diabetic radial artery. The cephalic vein was mobilized from underneath the radial skin flap and mobilized over to the artery. The patient was systemically heparinized. After adequate circulation time, the vessels were occluded with Vesseloops. End-to-side anastomosis was made between the vein and the artery with a running 6-0 Prolene suture. Again, the arterial burns had a large amount of calcification and difficulties. The vein was quite soft and easy, and would readily admit a 3 mm dilator which passed well up the forearm. The suture line was completed. Flow was first established up the AV fistula, and then back down the hand; remained seeing a good pulse down toward the hand and good capillary refill. The distal portion of the vein was doubly ligated and divided, releasing any tension on the AV fistula. Hemostasis was thoroughly obtained. An additional stitch was used at the apex of the anastomosis. The heparin was reversed with protamine and hemostasis was assured. The wound was infiltrated with 0.5% Marcaine, and bathed in some topical thrombin. While this was happening, a second small incision was made over a large collateral feeding into the primary cephalic vein. This was ligated because of palpable bruit in the collateral. This was doubly ligated with 3-0 silk ties. That wound was closed with 4-0 Monocryl subcuticular sutures, after being infiltrated with 0.5% Marcaine. The primary incision was closed with interrupted 3-0 Vicryl subcutaneous sutures and 4-0 Monocryl subcuticular stitch for the skin. The wounds were dressed with Dermabond. She tolerated the procedure well. She was taken to the recovery room in good condition. There were no complications. /[id number]/MODL MTDD
[2017-06-09] MEDS: oxyCODONE IR 5 MG TAB PO PRN ×3 (02:01→21:03)
[2017-06-09 04:47] LABS: % IMMATURE GRANULYOCYTES 0.6 % (0.0-1.1); ABSOLUTE IMMATURE GRANULOCYTES 0.06 10^3/uL (0.00-0.10); ABSOLUTE NRBC COUNT 0.02 10^3/uL (0-0.01); ADD DIFF? NO; ADD MORPH? NO; ADD SCAN? NO; ATYPICAL LYMPHOCYTE FLAG 0 (0-99); FRAGMENT RBC FLAG 0 (0-99); HEMATOCRIT 28.8 % (38.0-47.0); HEMOGLOBIN 9.2 g/dL (12.6-16.3); LEFT SHIFT FLG 0 (0-99); LIPEMIA HEMOLYSIS FLAG 80 (0-99); MEAN CELL HEMOGLOBIN 29.7 pg (27.9-34.1); MEAN CELL HEMOGLOBIN CONCENTR. 31.9 g/dL (32.4-36.7); MEAN CELL VOLUME 92.9 fL (81.5-99.8); NRBC-AUTO% 0.2 % (0.0-0.2); PLATELET CLUMPS FLAG 0 (0-99); PLATELET COUNT 297 10^3/uL (150-400)
[2017-06-09 05:04] LABS: ALBUMIN 2.8 g/dL (3.5-5.0); ANION GAP 12 mEq/L (8-16); CARBON DIOXIDE 27 mEq/l (22-31); CHLORIDE 95 mEq/L (97-110); CREATININE 4.7 mg/dL (0.6-1.0); GLOMERULAR FILTRATION RATE 9; GLUCOSE 96 mg/dL (70-100); POTASSIUM 4.8 mEq/L (3.5-5.2); SODIUM 134 mEq/L (134-144)
[2017-06-09] MEDS: PANTOPRAZOLE SODIUM 40 MG TAB PO SCH ×2 (09:14→21:03)
[2017-06-09] MEDS: predniSONE 10 MG TAB PO SCH (09:14)
[2017-06-09] MEDS: LISINOPRIL 5 MG TAB PO SCH (09:14)
--- NOTE | 2017-06-09 10:30 | SOAPPROG ---
JOCELINE Progress Note Assessment/Plan: Assessment: 66-year-old female with chronic renal failure in need of an AV fistula/risks and options fully discussed/presently on dialysis Vein mapping pending Plan: Left arm AV fistula in the a.m. 06/07/17 12:01 06/09/17 10:29 Adequate fistula thrill and bruit/wound okay/home per Internal Medicine/will follow up in the office next week Objective: Vital Signs Temp Pulse Resp BP Pulse Ox 36.6 C 65 16 133/82 H 96 06/09/17 08:10 06/09/17 08:10 06/09/17 08:10 06/09/17 08:10 06/09/17 08:10 Microbiology 06/06/17 12:20 Gram Stain - Final Knee - Aspirate Laboratory Results 06/09/17 04:31 06/09/17 04:31 06/08/17 06/09/17 06/10/17 05:59 05:59 05:59 Intake Total 940 400 Output Total 725 35 Balance 215 365 PT 14.8 SEC (12.0-15.0) 06/05/17 09:15 INR 1.16 (0.83-1.16) 06/05/17 09:15 ICD10 Worksheet Patient Problems: Problems Problem Status Onset Hypertension Acute Vomiting Acute
--- NOTE | 2017-06-09 11:00 | SOAPPROG ---
SOAP Progress Note Assessment/Plan: Assessment/Plan: ESRD: pt previously known to have CKD stage 5 in 2014 with Cr at that time stable at 2.7, had 2.6g protinuria, negative serological workup. She refused biopsy at the time and has not returned to clinic since 11/2014. She now presents with acute smptoms of N/V/D and Cr of 14, UA with proteinuria, acidosis , and hyperkalemia. Her symptoms are likely due to uremia, her US reviewed and had very little cortex left. Pt started on HD this week and feeling better. - Pt got HD last yesterday. - Pt has a spot at [facility] for noon on TTS. - Next HD will be on Monday, will do here if she is still inpatient. - Pt has tunneled catheter, appreciate Dr. Senior placing fistula before her discharge. HTN: improved, on lisinopril, will continue to monitor. Anemia: Hgb 9.2, pt will continue to get epo and iron at outpatient dialysis unit. SARAH: Pt had hypocalcemia and hyperphosphatemia with markedly elevated PTH. Electrolytes improving with HD, will continue to monitor without phos binder yet. Subjective: Pt had fistula placed in E yesterday, initially had some bleeding with concern it would need revision but no longer bleeding. She states she feels her strength is not what it needs to be yet. Objective: Vital Signs Temp Pulse Resp BP Pulse Ox 36.6 C 65 16 133/82 H 96 06/09/17 08:10 06/09/17 08:10 06/09/17 08:10 06/09/17 08:10 06/09/17 08:10 Microbiology 06/06/17 12:20 Gram Stain - Final Knee - Aspirate Laboratory Results 06/09/17 04:31 06/09/17 04:31 06/08/17 06/09/17 06/10/17 05:59 05:59 05:59 Intake Total 940 400 Output Total 725 35 Balance 215 365 PT 14.8 SEC (12.0-15.0) 06/05/17 09:15 INR 1.16 (0.83-1.16) 06/05/17 09:15 General: alert and oriented, no acute distress Eyes; EOMI, PERRL OP: Clear CV: RRR Resp: CtAB, nonlabored respirations Abd; soft, NT Ext: no edema BLE Neuro; CN II-XII grossly intact, no asterixis Psych; cooperative, appropriate mood and affect Access: R IJ tunneled catheter, LUE AVF placed yesterday ICD10 Worksheet Patient Problems: Problems Problem Status Onset Hypertension Acute Vomiting Acute
--- NOTE | 2017-06-09 11:38 | HOSPPROG ---
Hospitalist Progress Note Assessment/Plan: #ESRD: Fistula placed yesterday, HD per renal, TTS schedule. #Accelerated HTN: due to above. PRN hydral #Symptomatic uremia: improved with HD #Metabolic acidosis: resolved with HD #Acute blood loss & and anemia renal disease: s/p 3 units RBCs. EGD with antral gastritis. H pylori pending. PPI #Right knee swelling: pseudogout. Day 4/ pred #Insomnia: melatonin #Diet: renal #DVT ppx: SQH #Disp: cont inpt, likely home tomorrow after HD. Will need outpt hand therapy. Subjective: Pt feels better. Hand is stiff after fistula placement. No hernandez, CP or SOB. Objective: Vital Signs Temp Pulse Resp BP Pulse Ox 36.6 C 65 16 133/82 H 96 06/09/17 08:10 06/09/17 08:10 06/09/17 08:10 06/09/17 08:10 06/09/17 08:10 Microbiology 06/06/17 12:20 Gram Stain - Final Knee - Aspirate Laboratory Results 06/09/17 04:31 06/09/17 04:31 06/08/17 06/09/17 06/10/17 05:59 05:59 05:59 Intake Total 940 400 Output Total 725 35 Balance 215 365 PT 14.8 SEC (12.0-15.0) 06/05/17 09:15 INR 1.16 (0.83-1.16) 06/05/17 09:15 - Physical Exam Constitutional: no apparent distress Eyes: PERRL Ears, Nose, Mouth, Throat: moist mucous membranes Cardiovascular: regular rate and rhythym Respiratory: no respiratory distress, clear to auscultation Gastrointestinal: normoactive bowel sounds, soft, non-tender abdomen Skin: warm Musculoskeletal: full muscle strength Neurologic: AAOx3 Psychiatric: interacting appropriately ICD10 Worksheet Patient Problems: Problems Problem Status Onset Hypertension Acute Vomiting Acute
--- NOTE | 2017-06-09 16:17 | ASMTCMCOM ---
CM Note CM Note Notes: Talked with Nav Lee, coal washer tender at the [facility] [phone]. Pt is set up to start dialysis there after her [facility] d/c. Nav stated that If pt DC's on Monday, the Center will try to schedule her for a Monday evening dialysis. Otherwise, if she DC's Monday, she will then start her // schedule. Nav will not be available over the weekend. Pt had AVF placed today. She continues to have daily dialysis. C/M will continue to follow. Date Signed: 06/09/2017 04:17 PM Electronically Signed By:Lara Deras LCSW
[2017-06-09] MEDS ORDERED: traZODone 50 MG TAB PO PRN (17:01)
[2017-06-09] MEDS: MELATONIN 3 MG TAB PO SCH (20:58)
[2017-06-10 06:06] LABS: % IMMATURE GRANULYOCYTES 0.5 % (0.0-1.1); ABSOLUTE IMMATURE GRANULOCYTES 0.05 10^3/uL (0.00-0.10); ADD DIFF? NO; ADD MORPH? NO; ADD SCAN? NO; ATYPICAL LYMPHOCYTE FLAG 10 (0-99); FRAGMENT RBC FLAG 0 (0-99); HEMATOCRIT 27.8 % (38.0-47.0); HEMOGLOBIN 8.8 g/dL (12.6-16.3); LEFT SHIFT FLG 0 (0-99); LIPEMIA HEMOLYSIS FLAG 80 (0-99); MEAN CELL HEMOGLOBIN 29.7 pg (27.9-34.1); MEAN CELL HEMOGLOBIN CONCENTR. 31.7 g/dL (32.4-36.7); MEAN CELL VOLUME 93.9 fL (81.5-99.8); MEAN PLATELET VOLUME 11.4 fL (8.7-11.7); PLATELET CLUMPS FLAG 0 (0-99); PLATELET COUNT 319 10^3/uL (150-400); RED BLOOD CELL COUNT 2.96 10^6/uL (4.18-5.33); RED CELL DISTRIBUTION WIDTH 13.8 % (11.5-15.2)
[2017-06-10 06:34] LABS: ALBUMIN 2.8 g/dL (3.5-5.0); ANION GAP 17 mEq/L (8-16); CALCIUM 6.7 mg/dL (8.5-10.4); CARBON DIOXIDE 23 mEq/l (22-31); CHLORIDE 96 mEq/L (97-110); CREATININE 6.4 mg/dL (0.6-1.0); GLOMERULAR FILTRATION RATE 7; GLUCOSE 89 mg/dL (70-100); POTASSIUM 4.8 mEq/L (3.5-5.2); SODIUM 136 mEq/L (134-144)
--- NOTE | 2017-06-10 08:32 | SOAPPROG ---
SOAP Progress Note Assessment/Plan: Assessment: 1. ESRD Seen on HD. Stable with good catheter function. Fistula placed yesterday. She has spot at the [facility] on TTS. 2. Anemia Stable, follow 3. Pseudogout Improved with prednisone Plan: 06/10/17 08:30 06/10/17 08:30 Subjective: Doing pretty well, seen on HD Objective: Vital Signs Temp Pulse Resp BP Pulse Ox 36.6 C 73 16 141/86 H 93 06/10/17 04:00 06/10/17 04:00 06/10/17 04:00 06/10/17 04:00 06/10/17 04:00 Microbiology 06/06/17 12:20 Gram Stain - Final Knee - Aspirate Laboratory Results 06/10/17 05:22 06/10/17 05:22 06/09/17 06/10/17 06/11/17 05:59 05:59 05:59 Intake Total 400 250 Output Total 35 300 Balance 365 -50 PT 14.8 SEC (12.0-15.0) 06/05/17 09:15 INR 1.16 (0.83-1.16) 06/05/17 09:15 Physical Exam - Physical Exam General Appearance: no apparent distress Neck: other (cath tunnel site looks ok) Respiratory: lungs clear Cardiac/Chest: regular rate, rhythm Extremities: normal inspection Neuro/Psych: oriented x 3 ICD10 Worksheet Patient Problems: Problems Problem Status Onset Hypertension Acute Vomiting Acute
[2017-06-10] MEDS: oxyCODONE IR 5 MG TAB PO PRN (11:37)
[2017-06-10] MEDS: PANTOPRAZOLE SODIUM 40 MG TAB PO SCH (11:38)
[2017-06-10] MEDS: predniSONE 10 MG TAB PO SCH (11:38)
[2017-06-10] MEDS: LISINOPRIL 5 MG TAB PO SCH (11:38)
[2017-06-10 15:15] VITALS: BP 131/82; PULSE 79; TEMP 98; O2SAT 92
--- NOTE | 2017-06-10 16:41 | PDIAF ---
- Diagnosis Diagnosis: ESRD Code Status: Full Code - Medication Management Discharge Medications: Medications to Continue on Transfer Lisinopril [Zestril 5 mg (*)] 5 mg PO DAILY #30 tab 06/10/17 [Last Taken Unknown ] Melatonin [Melatonin 3 MG (*)] 3 mg PO HS #30 tab 06/10/17 [Last Taken Unknown] Pantoprazole Sodium [Protonix 40mg (*)] 40 mg PO BID #60 tab 06/10/17 [Last Taken Unknown] traZODone [traZODONE 50MG (*)] 50 mg PO HS PRN #30 tab 06/10/17 [Last Taken Unknown] Discharge Medications: Refer to the Discharge Home Medication list for PRN reason. PICC Care - Routine: N/A - Orders Services needed: Home Care, Physical Therapy, Occupational Therapy Home Care Face to Face: I certify that this patient was under my care and that I had the required [id number] encounter meeting the encounter requirements on the discharge day. My findings support the fact that the patient is homebound as defined in CMS Chapter 7 Medicare Benefits Manual 30.1.1, The condition of the patient is such that there exists a normal inability to leave home and consequently, leaving home would require a considerable and taxing effort. Diet Recommendation: other (renal diet) Weigh Patient: daily Activity/Weight Bearing Restrictions: Needs hand therapy, PT/OT services - Follow Up Care Current Providers and Referrals: NONE *PRIMARY CARE P,. [Primary Care Provider] - As per Instructions Moraima Bardales MD [Medical Doctor] -
--- NOTE | 2017-06-10 17:33 | ASMTCMCOM ---
CM Note CM Note Notes: Pt ready for DC today. Pt reluctant to DC home. Friends that were present in room encouraged her with offers to help with food and let pt stay with them if needed. Pt agreed if she could have HC. [facility] set up for PT/OT. They were alerted with SOC tomorrow. Date Signed: 06/10/2017 05:32 PM Electronically Signed By:Lara Deras LCSW
[2017-06-10] MEDS ORDERED: HEPARIN 50,000 UNIT/10 ML VIAL ONE (17:53)
--- NOTE | 2017-06-11 05:29 | GDS ---
[f rep st] DISCHARGE SUMMARY DISCHARGE DIAGNOSES: 1. End-stage renal disease, now dialysis dependent. 2. Hypertension. 3. Symptomatic uremia, improved with dialysis. 4. Metastatic acidosis, resolved. 5. Anemia secondary to acute blood loss and anemia of chronic disease, status post 3 units of packed red blood cells. 6. Right knee swelling, suspected secondary to pseudogout, status post 5 days of oral prednisone. 7. Insomnia. 8. Mild antral gastritis. CONSULTANTS: 1. Moraima Bardales MD, Nephrology. 2. Clayton Fowler MD, Pulmonology. 3. Nate Herring MD, Gastroenterology. 4. Blayne Senior MD, General Surgery. IMAGING STUDIES/PROCEDURES: 1. Abdomen and pelvis ultrasound June 03, showed echogenic kidneys bilaterally compatible with c hronic renal failure. An incidental cyst in the upper pole of the right kidney. 2. Echocardiogram June 03, 2017, showed normal left ventricular systolic function with an ejecti on fraction of 65% to 70%, mild left ventricular hypertrophy with Doppler evidence for diastolic dysf unction, normal appearing valves with mild to moderate mitral regurgitation, mild tricuspid regurgita tion. 3. EGD with biopsy performed by Dr. Nate Herring, June 05, showed a small hiatal hernia with mild antral gastritis, status post biopsy of the antrum and body which was negative for Helicobacter pylori and histology and showed mild chronic inflammation of the gastric mucosa. 4. Insertion of a tunneled dialysis catheter, June 05, 2017, by Dr. Socorro Laguerre. 5. Left radiocephalic AV fistula placement performed by Dr. Doug Senior June 08, 2017. HISTORY: For details, please see the history and physical dated June 03, 2017. In brief, is a [age]-year-old female with history of stage 4 chronic kidney disease, who presented to the hospital with persistent nausea and vomiting. She was admitted to the hospital for symptomatic uremia secondary to chronic renal failure. HOSPITAL COURSE: Patient was admitted to the telemetry unit. Her creatinine on admission was 14.3 w ith potassium of 5.3 and a BUN of 143. Renal ultrasound was performed with results described above. She was hypertensive and was initially treated with a labetalol drip. She was transitioned to oral medications and her blood pressures have been fairly well controlled on 5 mg of lisinopril daily. Sh e was also found to be anemic with reports of melanotic stools. She underwent GI evaluation which re vealed evidence of mild antral gastritis with no evidence of active bleeding. She has remained hemod ynamically stable and will be discharged on PPI therapy. Her hemoglobin on presentation was 7.4, thi s dropped to 5.5. She received 3 units of packed red blood cells. Per the renal service, a tunneled dialysis catheter was placed and she was initiated on hemodialysis which improved her uremic symptom s. Her acidemia resolved. Her electrolytes remained stable. She also developed acute knee pain dur ing the hospitalization which was felt secondary to pseudogout. She received a total of 5 days of pr ednisone therapy with improvement of her symptoms. In addition, she had some issues with mild hypoxe [place] requiring 1-2 L of oxygen. Chest x-ray did reveal some small pleural effusions, however, with in itiation of dialysis therapy, her oxygen needs resolved and she is discharged at 92% on room air. Th e patient did require therapy services and due to her need for additional support in the home environ ment, home health is ordered for PT, OT. DISPOSITION: Patient is discharged home in stable condition. FOLLOWUP: 1. Moraima Bardales MD, Nephrology. 2. Primary care. 3. Dialysis at the [facility] with a schedule of Monday, , Monday. DISCHARGE MEDICATIONS: Please see [employer] for completed outpatient medication list. New medication s on discharge include lisinopril 5 mg p.o. daily, #30, no refills; melatonin 3 mg p.o. at bedtime, # 30, no refills; trazodone 50 mg p.o. at bedtime p.r.n., #30, no refills; Protonix 40 mg p.o. b.i.d., #60, no refills. /[id number]/MODL
== END 2017-06-10 19:00 | disposition home health service (06) | DRG 673 ==
LOC: OBSVTOIN 17:47 → F2N 19:28 → F1N 06-06 20:00
PROVIDERS: ADMIT Family Medicine; ATTEND Family Medicine
PROC: 0DB68ZX Excision of Stomach, Via Natural or Artificial Opening Endoscopic, Diagnostic (ICD-10-PCS; 2017-06-04)
PROC: 30233N1 Transfusion of Nonautologous Red Blood Cells into Peripheral Vein, Percutaneous Approach (ICD-10-PCS; 2017-06-04)
PROC: 5A1D60Z (ICD-10-PCS; 2017-06-05)
PROC: 02H633Z Insertion of Infusion Device into Right Atrium, Percutaneous Approach (ICD-10-PCS; 2017-06-05)
PROC: 0S9C3ZX Drainage of Right Knee Joint, Percutaneous Approach, Diagnostic (ICD-10-PCS; 2017-06-06)
PROC: 031C0ZF Bypass Left Radial Artery to Lower Arm Vein, Open Approach (ICD-10-PCS; principal; 2017-06-08 11:00)
DX: I12.0 Hypertensive chronic kidney disease with stage 5 chronic kidney disease or end stage renal disease (principal); N18.6 End stage renal disease; D62 Acute posthemorrhagic anemia; E87.2 Acidosis; D63.1 Anemia in chronic kidney disease; M10.461 Other secondary gout, right knee; G47.00 Insomnia, unspecified; K29.70 Gastritis, unspecified, without bleeding; N28.1 Cyst of kidney, acquired; M25.461 Effusion, right knee; Z99.2 Dependence on renal dialysis; Z84.1 Family history of disorders of kidney and ureter
CPT/HCPCS: 86704-90; 96374; 97165-GO; 97530-GO; 97535-GO; J0690; J0885; J1100; J1644; J2250; J2370; J2405; J2440; J2550; J2704; J2720; J3010; J3490; P9016

== ENCOUNTER 2017-07-01 16:27 | Emergency (ER) | payer MEDICAID ==
[2017-07-01 16:53] VITALS: O2SAT 100
[2017-07-01] MEDS ORDERED: HYDROmorphONE/DILAUDID 1 MG/ML INJ IVP ONE (17:53)
--- NOTE | 2017-07-01 18:01 | EDPHY ---
H & P Stated Complaint: rt arm s/p dialysis port placed rt chest 3 wks ago HPI/ROS: HPI CHIEF COMPLAINT: Right arm pain HISTORY OF PRESENT ILLNESS: Patient very pleasant 66-year-old female recent diagnosis of stage 4 kidney disease end-stage renal disease on hemodialysis she completed 4 hours dialysis today. History of hypertension, uremia and pseudogout, she has right chest tunneled catheter as well as a new left arm AV fistula. She presents emergency room with right arm pain. Patient reports to me that for the past 4 weeks she has had ongoing right arm pain. It got acutely worse while dialysis. She denies any chest pain or shortness of breath. She states this feels very similar to when she was in the hospital and had pseudogout diagnosed her leg. However she states she has been having right arm pain for 4 weeks. Worse today at dialysis. Denies trauma. She describes the pain as sharp stabbing in her hand wrist elbow and up into her shoulder. At times it goes up into her neck into the base of her skull. Does hurt with worsening range of motion. Past Medical History: Hypertension, uremia, end-stage renal disease, pseudogout Past Surgical History: Left arm AV fistula, right chest tunnel catheter, splenic rupture Social History: Denies daily use drugs alcohol tobacco. Family History: Noncontributory ROS REVIEW OF SYSTEMS: A comprehensive 10 point review of systems is otherwise negative aside from elements mentioned in the history of present illness. Exam Constitutional: frail, cachectic, triage nursing summary reviewed, vital signs reviewed, awake/alert. Eyes normal conjunctivae and sclera, EOMI, PERRLA. HENT normal inspection, atraumatic, moist mucus membranes, no epistaxis, neck supple/ no meningismus, no raccoon eyes. Respiratory clear to auscultation bilaterally, normal breath sounds, no respiratory distress, no wheezing. Cardiovascular rate normal, regular rhythm, no murmur, no edema, distal pulses normal. Gastrointestinal soft, non-tender, no rebound, no guarding, normal bowel sounds, no distension, no pulsatile mass. Genitourinary no CVA tenderness. Musculoskeletal no midline vertebral tenderness, full range of motion, no calf swelling, no tenderness of extremities, no meningismus, good pulses, neurovascularly intact. Right upper extremity: This extremity is warm, good distal pulse. Good cap refill. Warm extremity. Good gem carver strength. Full range of motion of the arm however has pain with range of motion. There is no signs of swelling. No erythema no signs of infection. Good radial pulse. Good cap refill. She does have clubbing of the nails. Skin pink, warm, & dry, no rash, skin atraumatic. Neurologic awake, alert and oriented x 3, AAOx3, moves all 4 extremities equally, motor intact, sensory intact, CN II-XII intact, normal cerebellar, normal vision, normal speech. Psychiatric normal mood/affect. Heme/Lymph/Immune no lymphadenopathy. Differential Diagnosis: Includes but is not limited to in a particular order cervical radiculopathy, electrolyte disturbance, pseudogout, gout, nerve pain, DVT Medical Decision Making: Plan for this patient check basic blood work, IV Dilaudid 1 mg for pain control. Re-evaluate. Re-evaluation: Of note this patient did state that she received pain medicine Dr. Senior and she is now out of this pain medicine. Ultrasound of the right upper extremity. The results of the study are negative for acute DVT I discussed the results of this study with the radiologist Dr. Delgado 1931: Patient's blood work reviewed ultrasound reviewed. Case discussed with the patient. No great explanation for her right arm pain. She is neurovascular intact. Will prescribe her pain medicine. She should follow up with primary care doctor as well as Dr. Senior. Right chest catheter for dialysis clean, dry and intact. Left AV fistula incision site clean dry and intact. She understands return emergency room if she has worsening symptoms includes chest pain, shortness of breath or severe pain. Source: Patient - Personal History Current Tetanus/Diphtheria Vaccine: Yes Current Tetanus Diphtheria and Acellular Pertussis (TDAP): Yes Tetanus Vaccine Date: 2016 - Medical/Surgical History Hx Asthma: No Hx Chronic Respiratory Disease: No Hx Diabetes: No Hx Cardiac Disease: No Hx Renal Disease: Yes Hx Cirrhosis: No Hx Alcoholism: No Hx HIV/AIDS: No Hx Splenectomy or Spleen Trauma: No Other PMH: appendectomy. CKD stage 4. HTN. Proteinuria - Social History Smoking Status: Never smoked Constitutional: Initial Vital Signs Temperature (C) 37.1 C 07/01/17 16:50 Heart Rate 88 07/01/17 16:50 Respiratory Rate 16 07/01/17 16:50 Blood Pressure 156/100 H 07/01/17 16:50 O2 Sat (%) 100 07/01/17 16:50 O2 Delivery Mode Room Air Allergies/Adverse Reactions: No Known Allergies Allergy (Verified 07/01/17 16:49) Home Medications: Medication Instructions Recorded Lisinopril [Zestril 5 mg (*)] 5 mg PO DAILY #30 tab 06/10/17 Melatonin [Melatonin 3 MG (*)] 3 mg PO HS #30 tab 06/10/17 Pantoprazole Sodium [Protonix 40mg 40 mg PO BID #60 tab 06/10/17 (*)] traZODone [traZODONE 50MG (*)] 50 mg PO HS PRN #30 tab 06/10/17 Hydrocodone/APAP 5/325 [[place] 1 - 2 tab PO Q4H PRN #14 tab 07/01/17 5/325] Oxycodone HCl 07/01/17 Medical Decision Making - Data Points Laboratory Results: Laboratory Results 07/01/17 18:00 07/01/17 18:00 07/01/17 07/01/17 18:00 18:00 WBC 10.24 10^3/uL H 10^3/uL (3.80-9.50) RBC 2.91 10^6/uL L 10^6/uL (4.18-5.33) Hgb 8.7 g/dL L g/dL (12.6-16.3) Hct 27.3 % L % (38.0-47.0) MCV 93.8 fL fL (81.5-99.8) MCH 29.9 pg pg (27.9-34.1) MCHC 31.9 g/dL L g/dL (32.4-36.7) RDW 13.2 % % (11.5-15.2) Plt Count 411 10^3/uL H 10^3/uL (150-400) MPV 10.0 fL fL (8.7-11.7) Neut % (Auto) 71.1 % % (39.3-74.2) Lymph % (Auto) 19.0 % % (15.0-45.0) [place] % (Auto) 6.9 % % (4.5-13.0) Eos % (Auto) 1.2 % % (0.6-7.6) Baso % (Auto) 1.4 % % (0.3-1.7) Nucleat RBC Rel Count 0.0 % % (0.0-0.2) Absolute Neuts (auto) 7.28 10^3/uL H 10^3/uL (1.70-6.50) Absolute Lymphs (auto) 1.95 10^3/uL 10^3/uL (1.00-3.00) Absolute Monos (auto) 0.71 10^3/uL 10^3/uL (0.30-0.80) Absolute Eos (auto) 0.12 10^3/uL 10^3/uL (0.03-0.40) Absolute Basos (auto) 0.14 10^3/uL H 10^3/uL (0.02-0.10) Absolute Nucleated RBC 0.00 10^3/uL 10^3/uL (0-0.01) Immature Gran % 0.4 % % (0.0-1.1) Immature Gran # 0.04 10^3/uL 10^3/uL (0.00-0.10) Sodium 137 mEq/L mEq/L (134-144) Potassium 4.1 mEq/L mEq/L (3.5-5.2) Chloride 98 mEq/L mEq/L (97-110) Carbon Dioxide 24 mEq/l mEq/l (22-31) Anion Gap 15 mEq/L mEq/L (8-16) BUN 18 mg/dL mg/dL (7-23) Creatinine 2.6 mg/dL H mg/dL (0.6-1.0) Estimated GFR 19 Glucose 137 mg/dL H mg/dL (70-100) Calcium 9.1 mg/dL mg/dL (8.5-10.4) Medications Given: Discontinued Medications Hydromorphone HCl (Dilaudid) 1 mg IVP EDNOW ONE Stop: 07/01/17 17:54 Last Admin: 07/01/17 18:03 Dose: 1 mg Departure - Departure Disposition: Home, Routine, Self-Care Clinical Impression: Arm pain Qualifiers: Laterality: right Qualified Code(s): M79.601 - Pain in right arm Condition: Good Instructions: Arm Pain (ED) Additional Instructions: 1. Return emergency room if develops worsening symptoms questions or concerns. 2. Please follow up with your primary care doctor. Referrals: NONE *PRIMARY CARE P,. [Primary Care Provider] - As per Instructions Blayne Senior MD [Medical Doctor] - As per Instructions Prescriptions: Hydrocodone/APAP 5/325 [[place] 5/325] 1 - 2 tab PO Q4H PRN #14 tab PRN Reason: Pain, Moderate
[2017-07-01 18:06] LABS: % IMMATURE GRANULYOCYTES 0.4 % (0.0-1.1); ABSOLUTE IMMATURE GRANULOCYTES 0.04 10^3/uL (0.00-0.10); ADD DIFF? NO; ADD MORPH? NO; ADD SCAN? NO; ATYPICAL LYMPHOCYTE FLAG 0 (0-99); FRAGMENT RBC FLAG 0 (0-99); HEMATOCRIT 27.3 % (38.0-47.0); HEMOGLOBIN 8.7 g/dL (12.6-16.3); LEFT SHIFT FLG 0 (0-99); LIPEMIA HEMOLYSIS FLAG 80 (0-99); MEAN CELL HEMOGLOBIN 29.9 pg (27.9-34.1); MEAN CELL HEMOGLOBIN CONCENTR. 31.9 g/dL (32.4-36.7); MEAN CELL VOLUME 93.8 fL (81.5-99.8); PLATELET CLUMPS FLAG 0 (0-99); PLATELET COUNT 411 10^3/uL (150-400); RED BLOOD CELL COUNT 2.91 10^6/uL (4.18-5.33); RED CELL DISTRIBUTION WIDTH 13.2 % (11.5-15.2)
[2017-07-01 18:36] LABS: ANION GAP 15 mEq/L (8-16); CALCIUM 9.1 mg/dL (8.5-10.4); CARBON DIOXIDE 24 mEq/l (22-31); CHLORIDE 98 mEq/L (97-110); CREATININE 2.6 mg/dL (0.6-1.0); GLOMERULAR FILTRATION RATE 19; GLUCOSE 137 mg/dL (70-100); POTASSIUM 4.1 mEq/L (3.5-5.2); SODIUM 137 mEq/L (134-144)
[2017-07-01 19:38] VITALS: BP 147/89; PULSE 71; RESP 18; TEMP 97.9
[2017-07-01] MEDS ORDERED: HYDROCOD/APAP 5/325 PREPACK#6 BTL TAKEHOME ONE ×2 (19:43→19:46)
== END 2017-07-01 19:57 | disposition home or self-care (01) ==
DX: M79.601 Pain in right arm (principal); I12.0 Hypertensive chronic kidney disease with stage 5 chronic kidney disease or end stage renal disease; N18.6 End stage renal disease; Z99.2 Dependence on renal dialysis
CPT/HCPCS: 96374; J1170

== ENCOUNTER 2017-10-15 12:32 | Emergency (ER) | payer MEDICAID ==
--- NOTE | 2017-10-15 13:41 | EDPHY ---
H & P Time Seen by Provider: 10/15/17 12:49 HPI/ROS: HPI AV fistula bleeding. 66-year-old female history of end-stage renal disease on hemodialysis. She is dialyzed on Tuesdays and Saturdays. She reports she was at dialysis yesterday. She reports that they placed a bandage over her left forearm AV fistula as that usually do. She reports that she left this bandage on overnight. She reports that when she woke up this morning there was some blood on the bandage so she did not want to take it off came to the emergency department to have it evaluated. She denies any significant bleeding other than this. This is the original bandage that was placed at the dialysis clinic yesterday. ROS: Constitutional: No fever, no chills. No weakness. Musculoskeletal: No back pain. No neck pain. No myalgias or arthralgias. Skin: No rashes. As above. Neurological: No focal weakness or altered sensation. Past medical history: Stage 4 kidney disease on hemodialysis, left forearm AV fistula placed by Dr. Doug Senior, protein urea, appendectomy, . Social history: Here with friend. Nonsmoker. Denies alcohol. Physical Exam: General Appearance: Alert, no distress. This patient is responding to questions appropriately and in full sentences. This patient appears well- hydrated and well-nourished. Eyes: Pupils equal and round no pallor or injection. No lid edema, erythema or injection. Left upper extremity exam: She has a radial ventral AV fistula with a small bandage over it. There is no blood soaking through the bandage. The bandage was taken down. There is no out bleeding from the AV fistula site. There is a normal palpable thrill appreciated. Distal pulses and sensation in her hand are all intact. Neurological: Motor sensory function is grossly intact. Cranial nerves are normal. Gait is normal. Skin: Warm and dry, no rashes. Extremities are symmetrical. All joints range without pain or impingement. Psychiatric: No agitation. No depression. Database: EKG: Imaging: Procedures: Emergency department course: Vital signs reviewed and are unremarkable. No active hemorrhage. I placed a gentle pressure dressing over the AV fistula site. I instructed the patient to leave it in place for another 4 hr and then remove it. She feels comfortable going home with her friend. Follow-up and return to emergency department precautions have been reviewed with her. All of her questions were answered. She was discharged in good condition. Differential Diagnosis: The differential diagnosis on this patient includes but is not limited to AV fistula site bleeding. Significant anemia, active hemorrhage unlikely. This represents a partial list of diagnoses considered. These considerations are based on history, physical exam, past history, reassessment and diagnostic testing. Smoking Status: Never smoked Constitutional: Initial Vital Signs Temperature (C) 36.6 C 10/15/17 12:46 Heart Rate 70 10/15/17 12:46 Respiratory Rate 16 10/15/17 12:46 Blood Pressure 133/87 H 10/15/17 12:46 O2 Sat (%) 98 10/15/17 12:46 O2 Delivery Mode Room Air Allergies/Adverse Reactions: No Known Allergies Allergy (Verified 10/15/17 12:45) Home Medications: Medication Instructions Recorded Pantoprazole Sodium [Protonix 40mg 40 mg PO BID #60 tab 06/10/17 (*)] traZODone [traZODONE 50MG (*)] 50 mg PO HS PRN #30 tab 06/10/17 Lovastatin 10/15/17 Departure - Departure Disposition: Home, Routine, Self-Care Clinical Impression: Bleeding from AV fistula Condition: Good Instructions: Arteriovenous Fistula Creation for Hemodialysis (DC) Additional Instructions: Read and follow provided instructions. Follow-up with Dr. Doug Senior to have your AV fistula re-examined as needed on Monday as discussed. Remove bandage dressing in 4 hr. Replace with Band-Aid. Return to the emergency department for bleeding, pain or other serious concerns. Referrals: David Ordaz [Primary Care Provider] - As per Instructions
[2017-10-15 13:57] VITALS: BP 122/79; PULSE 69; RESP 18; TEMP 98.6; O2SAT 100
== END 2017-10-15 13:57 | disposition home or self-care (01) ==
DX: T82.838A Hemorrhage due to vascular prosthetic devices, implants and grafts, initial encounter (principal); N18.4 Chronic kidney disease, stage 4 (severe); Y82.9 Unspecified medical devices associated with adverse incidents

== ENCOUNTER 2017-11-17 08:35 | Day surgery (SDC) | payer MEDICAID ==
[2017-11-17] MEDS ORDERED: ceFAZolin 2 GM/SWFI 2 GM/20 ML SYR IVP ONE (08:55)
[2017-11-17] MEDS ORDERED: LR 1,000 ML IV ONE (08:56)
[2017-11-17] MEDS ORDERED: LIDOCAINE 1% 2 ML INJ ID PRN (08:56)
[2017-11-17 10:11] LABS: PLATELET COUNT 294 10^3/uL (150-400)
--- NOTE | 2017-11-17 10:19 | PDHPUP ---
History & Physical Update H&P update statement: This history and physical update is based on an assessment of the patient which was completed after admission or registration (within 24 hours), but prior to the surgery/procedure.
--- NOTE | 2017-11-17 10:29 | PDANEPAE ---
ANE History of Present Illness ESRD ANE Past Medical History - Cardiovascular History Hx Hypertension: Yes - Pulmonary History Hx Oxygen in Use at Home: No Hx Sleep Apnea: No Sleep Apnea Screening Result - Last Documented: Negative - Endocrine History Hx Diabetes: No - Renal History Hx Renal Disorders: Yes - Chronic Pain History Chronic Pain: No ANE Review of Systems Review of Systems: ANE Patient History - Allergies Allergies/Adverse Reactions: No Known Allergies Allergy (Verified 10/15/17 12:45) - Home Medications Home Medications: Lovastatin 10/15/17 [Last Taken Unknown] - NPO status NPO Since - Liquids (Date): 11/16/17 NPO Since - Liquids (Time): 21:00 NPO Since - Solids (Date): 11/16/17 NPO Since - Solids (Time): 20:00 - Smoking Hx Smoking Status: Never smoked ANE Labs/Vital Signs - Labs Result Diagrams: 11/17/17 09:47 11/17/17 09:47 - Vital Signs Blood Pressure: 98/57 Heart Rate: 75 Respiratory Rate: 16 O2 Sat (%): 99 Height: 149.86 cm Weight: 38.102 kg ANE Physical Exam - Airway Neck exam: FROM Mallampati Score: Class 2 Mouth exam: normal dental/mouth exam - Pulmonary Pulmonary: no respiratory distress - Cardiovascular Cardiovascular: regular rate and rhythym - ASA Status ASA Status: IV ANE Anesthesia Plan Anesthesia Plan: GA w LMA
[2017-11-17] MEDS ORDERED: THROMBIN (BOVINE) 5,000 UNIT VIAL TP ONE (10:31)
[2017-11-17] MEDS ORDERED: BUPIVACAINE 0.5% 10 ML SDV ONE ×2 (10:31)
[2017-11-17] MEDS ORDERED: fentaNYL 100 MCG/2 ML INJ ONE (10:43)
[2017-11-17] MEDS ORDERED: PROPOFOL 200 MG/20 ML VIAL ONE ×2 (10:43)
[2017-11-17] MEDS ORDERED: DEXAMETHASONE 4 MG/ML VIAL ONE (11:47)
[2017-11-17] MEDS ORDERED: ONDANSETRON 4 MG/2 ML VIAL ONE (11:47)
[2017-11-17] MEDS ORDERED: PHENYLEPHRINE HCL 100 MCG/ML SYR ONE (11:47)
[2017-11-17] MEDS ORDERED: ONDANSETRON 4 MG/2 ML VIAL IVP PRN (11:48)
[2017-11-17] MEDS ORDERED: fentaNYL 100 MCG/2 ML INJ IVP PRN (11:48)
[2017-11-17] MEDS ORDERED: NALOXONE HCL 0.4 MG/ML INJ IVP PRN (11:48)
[2017-11-17 12:06] VITALS: PULSE 97; TEMP 98.6
[2017-11-17 12:33] VITALS: BP 93/63
[2017-11-17 13:57] VITALS: RESP 12; O2SAT 97
--- NOTE | 2017-11-19 12:57 | GOP ---
[f rep st] OPERATIVE REPORT DATE OF OPERATION: 11/17/2017 SURGEON: Blayne Senior MD GOLF CART ASSEMBLER: Drea Sifuentes NP ANESTHESIOLOGIST: Bob Nuñez MD PREOPERATIVE DIAGNOSIS: 1. Chronic renal failure. 2. Arteriovenous fistula collaterals. POSTOPERATIVE DIAGNOSIS: 1. Chronic renal failure. 2. Arteriovenous fistula collaterals. PROCEDURE PERFORMED: Arteriovenous fistula revision with ligation of collaterals and ultrasound vein mapping. FINDINGS: DESCRIPTION OF PROCEDURE: The patient was taken to the operating room, where she received satisfacto ry laryngeal mask anesthetic. She was prepped and draped in usual sterile fashion with the left arm outstretched on an arm board. Ultrasound was used to map the AV fistula which appeared to be widely patent and quite superficial. Two significant tributaries were identified. However, one was not deondre aling blood and that was ignored. The other one definitely augmented the flow in the AV fistula when it was compressed. A short incision was made over that collateral and it was doubly ligated with 3- 0 silk sutures. Wounds were infiltrated with 0.5% Marcaine and closed with 4-0 Monocryl subcuticular sutures. All layers were infiltrated with 0.25% Marcaine. Fistula was still working strongly at co mpletion of the procedure. There were no complications. /[id number]/MODL
== END 2017-11-17 13:45 | disposition home or self-care (01) ==
LOC: FSGY 08:35
PROVIDERS: ATTEND Surgery
PROC: 05LY0ZZ Occlusion of Upper Vein, Open Approach (ICD-10-PCS; principal; 2017-11-17 10:15)
DX: T82.898A Other specified complication of vascular prosthetic devices, implants and grafts, initial encounter (principal); N18.6 End stage renal disease; I12.0 Hypertensive chronic kidney disease with stage 5 chronic kidney disease or end stage renal disease; Y82.9 Unspecified medical devices associated with adverse incidents; Z99.2 Dependence on renal dialysis
CPT/HCPCS: J0690; J1100; J1644; J2370; J2405; J2704; J3010

== ENCOUNTER 2018-02-03 17:48 | Emergency (ER) | payer OTHER, MEDICAID ==
[2018-02-03] MEDS ORDERED: TRANEXAMIC ACID 1,000 MG/10 ML VIAL TP ONE ×2 (18:03→20:00)
--- NOTE | 2018-02-03 18:12 | EDPHY ---
HPI/HX/ROS/PE/MDM Narrative: CHIEF COMPLAINT: Bleeding fistula HISTORY OF PRESENT ILLNESS: This patient is a 67 y/o female arriving via EMS for evaluation of a bleeding fistula in her left arm. She completed her dialysis treatment today at 16:00 but began bleeding from her fistula site around 16:30 despite SureSeal pressure bandage placed following the treatment. The patient was unable to control the bleeding with direct pressure and called for EMS. She denies any dizziness, lightheadedness, or syncope. No fever, chills, chest pain, shortness of breath, palpitations, vomiting, diarrhea, urinary complaints, headache. REVIEW OF SYSTEMS: As per HPI. PAST MEDICAL HISTORY: Chronic kidney disease, hypertension, appendectomy, c- section, ruptured spleen SOCIAL HISTORY: Lives in [place]. Student. Single. VITAL SIGNS: Reviewed by me GENERAL: Well-developed, well-nourished, resting comfortably in no respiratory distress. EXTREMITIES: Oozing bleeding from proximal puncture site of dialysis AV fistula on ventral aspect of left forearm. Palpable thrill. Radial and ulnar pulses present. Range of motion is normal throughout. NEURO: Alert and oriented, grossly nonfocal. SKIN: Warm and dry, no rash. PSYCHIATRIC: Normal mentation, no agitation. Portions of this note were transcribed by a vice president medical affairs. I personally performed a history, physical exam, medical decision making, and confirmed accuracy of information the transcribed note. ED Course: 17:52 Met EMS at bedside. 67 y/o female presents with oozing bleeding from her proximal ventral fistula site on her left forearm. No significant pulsatile bleeding noted. Plan to administer 500mg TP TXA to bleeding site. 19:15 Bleeding is controlled with gel foam soaked with TXA. However, she is now begin to bleed from the distal fistula access site. Plan to administer TP TXA to this area as well. Hemostasis was not able to be achieved at the 2nd access site, and, the proximal site is now also losing. 19:30 Attempted to gain hemostasis at both sites with a surgical gel material from the OR. This was ultimately unsuccessful due to the puncture nature of the bleeding sites. At this point I again placed a dressing of T x-ray with Gel- Foam over both fistula puncture sites and held direct pressure. 20:30 Reassessed patient. Her bleeding appears to be controlled at this time. Plan to discharge home in good condition. Follow up and return precautions discussed. She is comfortable with this plan. MDM: Differential diagnoses for the patient's symptom complex was considered including but not limited to bleeding from the AV fistula site, platelet insufficiency, coagulation disorder, hypertension. - Data Points Medications Given: Discontinued Medications Tranexamic Acid (Cyklokapron) 500 mg TP EDNOW ONE Stop: 02/03/18 18:04 Last Admin: 02/03/18 18:08 Dose: 500 mg Tranexamic Acid (Cyklokapron) 500 mg TP EDNOW ONE Stop: 02/03/18 20:01 Last Admin: 02/03/18 22:09 Dose: Not Given General Time Seen by Provider: 02/03/18 17:50 Initial Vital Signs: Initial Vital Signs Temperature (C) 36.6 C 02/03/18 17:53 Heart Rate 77 02/03/18 17:53 Respiratory Rate 16 02/03/18 17:53 Blood Pressure 112/75 02/03/18 17:53 O2 Sat (%) 98 02/03/18 17:53 O2 Delivery Mode Room Air Allergies/Adverse Reactions: No Known Allergies Allergy (Verified 10/15/17 12:45) Home Medications: Medication Instructions Recorded Pantoprazole Sodium [Protonix 40mg 40 mg PO BID #60 tab 06/10/17 (*)] traZODone [traZODONE 50MG (*)] 50 mg PO HS PRN #30 tab 06/10/17 Lovastatin 10/15/17 Departure - Departure Disposition: Home, Routine, Self-Care Clinical Impression: Surgical arteriovenous fistula hemorrhage Qualifiers: Encounter type: initial encounter Qualified Code(s): T82.838A - Hemorrhage due to vascular prosthetic devices, implants and grafts, initial encounter Condition: Good Instructions: Arteriovenous Fistula Creation for Hemodialysis (DC) Additional Instructions: 1. Please follow up with your dialysis provider for re-evaluation. 2. The attached instructions are general instructions for after fistula placement so may apply exactly to your situation, but does include valuable information regarding return precautions. 3. Return to the emergency department for recurrent uncontrollable bleeding, chest pain, shortness of breath, lightheadedness or fainting, or other worsening of condition. Return if you develop redness, warmth, discharge, or swelling around your fistula sites. Referrals: David Ordaz [Primary Care Provider] - As per Instructions Report Scribed for: Sophia Barlow Report Scribed by: Malu iMnor Date of Report: 02/03/18 Time of Report: 18:13
[2018-02-03] MEDS ORDERED: TRANEXAMIC ACID 1,000 MG/10 ML VIAL ONE (19:50)
[2018-02-03] MEDS ORDERED: THROMBIN(HUM PLAS)/FIBRINOG/CA 5 ML VIAL TP ONE (20:25)
[2018-02-03 20:26] VITALS: BP 106/64
== END 2018-02-03 21:20 | disposition home or self-care (01) ==
LOC: EDUNIT#
DX: T82.838A Hemorrhage due to vascular prosthetic devices, implants and grafts, initial encounter (principal); I12.9 Hypertensive chronic kidney disease with stage 1 through stage 4 chronic kidney disease, or unspecified chronic kidney disease; N18.9 Chronic kidney disease, unspecified; Y82.8 Other medical devices associated with adverse incidents

== ENCOUNTER 2018-02-06 16:14 | Emergency (ER) | payer OTHER, MEDICAID ==
--- NOTE | 2018-02-06 16:35 | EDPHY ---
H & P Stated Complaint: port bleeding Time Seen by Provider: 02/06/18 16:35 HPI/ROS: CHIEF COMPLAINT: Requesting removal of dialysis catheter HISTORY OF PRESENT ILLNESS: The patient presents the ED requesting removal of dialysis catheter which has been in place since July of last year. The patient is currently receiving dialysis through a mature fistula in her left forearm. The patient reportedly developed some oozing around the dialysis catheter today which prompted the patient to be referred to the ED for evaluation of its removal. The patient denies any additional acute complaints. REVIEW OF SYSTEMS: A comprehensive 10 point review of systems is otherwise negative aside from elements mentioned in the history of present illness. Source: Patient Exam Limitations: No limitations - Personal History Current Tetanus/Diphtheria Vaccine: Yes Current Tetanus Diphtheria and Acellular Pertussis (TDAP): Yes Tetanus Vaccine Date: 2016 - Medical/Surgical History Hx Asthma: No Hx Chronic Respiratory Disease: No Hx Diabetes: No Hx Cardiac Disease: No Hx Renal Disease: Yes Hx Cirrhosis: No Hx Alcoholism: No Hx HIV/AIDS: No Hx Splenectomy or Spleen Trauma: Yes Other PMH: appendectomy, , ruptured spleen. CKD stage 4. HTN. Proteinuria - Social History Smoking Status: Never smoked - Physical Exam Exam: General Appearance: Thin female, no acute distress Eyes: Pupils equal and round no pallor or injection ENT, Mouth: Mucous membranes moist Respiratory: There are no retractions, lungs are clear to auscultation Cardiovascular: Regular rate and rhythm Gastrointestinal: Abdomen is soft and nontender, no masses, bowel sounds normal Neurological: 5/5 strength all 4 extremities Skin: Warm and dry, no rashes Musculoskeletal: Neck is supple nontender Extremities: Fistula noted in left forearm with palpable thrill Psychiatric: Patient is oriented X 3, there is no agitation Constitutional: Initial Vital Signs Temperature (C) 36.5 C 02/06/18 16:31 Heart Rate 75 02/06/18 16:31 Respiratory Rate 16 02/06/18 16:31 Blood Pressure 108/72 02/06/18 16:31 O2 Sat (%) 97 02/06/18 16:31 O2 Delivery Mode Room Air Allergies/Adverse Reactions: No Known Allergies Allergy (Verified 02/06/18 16:29) Home Medications: Medication Instructions Recorded Pantoprazole Sodium [Protonix 40mg 40 mg PO BID #60 tab 06/10/17 (*)] Lasix 02/06/18 Lisinopril 02/06/18 Medical Decision Making ED Course/Re-evaluation: The patient's port was removed in the emergency department with the assistance of Dr. Osborn. A pressure dressing was applied. Patient was observed in the emergency department. She is hemostatic at the area of her prior port. The patient will be discharged home with customary aftercare instructions and return precautions. Departure - Departure Disposition: Home, Routine, Self-Care Clinical Impression: Love catheter dysfunction Condition: Good Instructions: Arteriovenous Graft Creation for Hemodialysis (DC) Additional Instructions: 1. Return to the ED for any pain, swelling, bleeding or other concerns. 2. Apply pressure as needed for mild bleeding. 3. Follow up as scheduled with dialysis. Referrals: Blayne Senior MD [Primary Care Provider] - As per Instructions
[2018-02-06 18:42] VITALS: BP 111/75
== END 2018-02-06 18:42 | disposition home or self-care (01) ==
DX: T82.49XA Other complication of vascular dialysis catheter, initial encounter (principal); I12.9 Hypertensive chronic kidney disease with stage 1 through stage 4 chronic kidney disease, or unspecified chronic kidney disease; N18.4 Chronic kidney disease, stage 4 (severe); Y82.8 Other medical devices associated with adverse incidents

== ENCOUNTER 2018-06-12 17:28 | Observation (INO) | payer OTHER, MEDICAID ==
[2018-06-12] MEDS ORDERED: PROMETHAZINE HCL 25 MG/ML INJ IVP ONE (18:02)
[2018-06-12] MEDS ORDERED: ONDANSETRON 4 MG/2 ML VIAL IVP ONE (18:02)
[2018-06-12] MEDS ORDERED: NS 500 ML IV ONE (18:02)
[2018-06-12] MEDS ORDERED: FAMOTIDINE 20 MG/NACL 50 ML IV ONE (18:02)
[2018-06-12] MEDS ORDERED: LABETALOL HCL 5 MG/ML 20 ML MDV ONE (18:32)
[2018-06-12] MEDS ORDERED: LABETALOL HCL 5 MG/ML 20 ML MDV IVP ONE ×2 (18:32→20:02)
--- NOTE | 2018-06-12 18:38 | EDPHY ---
H & P Time Seen by Provider: 06/12/18 18:02 HPI/ROS: HPI High blood pressure, vomiting, from dialysis. 67-year-old female, history of kidney failure, on dialysis Monday and Monday. Patient had just received a full dialysis treatment. She states that shortly after the treatment ended she started feeling hot all over and her blood pressure started to elevate. She then became nauseous and started vomiting uncontrollably. She denies any abdominal pain. She was seen in our emergency department and admitted to our hospital for similar complaints back in July of 2017. Please see review of systems for further details. ROS: Constitutional: No fever, no chills. As above. Eyes: No discharge. No changes in vision. ENT: No sore throat. No nasal congestion or rhinorrhea. Respiratory: No cough. No shortness of breath. Cardiac: No chest pain, no palpitations. Gastrointestinal: No abdominal pain, as above, no diarrhea. Genitourinary: No hematuria. No dysuria or increased frequency with urination. Musculoskeletal: No back pain. No neck pain. No myalgias or arthralgias. Skin: No rashes. Neurological: No headache. No focal weakness or altered sensation. Past medical history: Stage 4 chronic kidney disease on hemodialysis. Prior hypertensive emergency. , splenic rupture, laparotomy, appendectomy. Social history: With significant other. She lives in [place]. No alcohol, tobacco or illicit drug use. Physical Exam: General Appearance: Alert, appears uncomfortable, she is dry heaving. Very thin in appearance. This patient is responding to questions appropriately and in full sentences. This patient appears well-hydrated and well-nourished. Eyes: Pupils equal and round no pallor or injection. No lid edema, erythema or injection. Respiratory: There are no retractions, lungs are clear to auscultation with good air movement bilaterally. Cardiovascular: Regular rate and rhythm. No murmur appreciated. Gastrointestinal: Abdomen is soft and nontender, no masses, bowel sounds normal. No focal tenderness at McBurney's point. No Trujillo sign. Neurological: Motor sensory function is grossly intact. Cranial nerves are normal. Cerebellar function normal. Skin: Warm and dry, no rashes. Musculoskeletal: Neck is supple and nontender. Extremities are symmetrical. All joints range without pain or impingement. Psychiatric: No agitation. No depression. Database: EKG: EKG time is 7:31 p.m.; EKG shows a narrow complex normal sinus rhythm with a ventricular rate of 56. The NH, QRS, QT intervals are within normal limits. There are no ST-T wave changes indicative of ischemic or injury pattern. No evidence of right heart strain. Interpreted by me. Imaging: Procedures: Emergency department course: IV placed. Patient markedly hypertensive at 225/111. Vital signs are otherwise normal. Patient is afebrile. She will be started on IV normal saline with 250-500 cc to be given over the next hour. She will initially be given 6.25 mg of IV Phenergan and 4 mg of IV Zofran for nausea. She will be given 20 mg of IV labetalol of her 10 min to target blood pressure of 160 systolic. EKG obtained and reviewed by myself. 6:50 p.m., patient's blood pressure currently 136/81. wort extractor shows a narrow complex sinus rhythm with ventricular rate of 62. She has received 120 mg dose of IV labetalol. She is now feeling much better. Repeat abdominal exam she is soft, nontender nondistended. 8:00 p.m., patient re-evaluated. Blood pressure currently 179/82. She will be given an additional 10 mg of IV labetalol. She currently is asymptomatic and tells me that she feels better. 8:20 p.m., patient re-evaluated blood pressure currently 152/88. wort extractor shows a narrow complex sinus rhythm with ventricular rate of 60. The patient currently does not feel comfortable going home. I feel it is reasonable to admit her for observation admission overnight. She is in agreement with this. Hospitalist paged. 8:30 p.m., spoke with hospitalist Dr. Paramjit Aragon, case discussed in detail. Patient accepted for admission to telemetry observation. Her remaining emergency department course under my care has been uneventful. She was admitted in stable condition. Differential Diagnosis: The differential diagnosis on this patient includes but is not limited to hypertensive emergency, vomiting, renal failure. This represents a partial list of diagnoses considered. These considerations are based on history, physical exam, past history, reassessment and diagnostic testing. Smoking Status: Never smoked Constitutional: Initial Vital Signs Temperature (C) 36.4 C 06/12/18 17:38 Heart Rate 64 06/12/18 17:38 Respiratory Rate 16 06/12/18 17:38 Blood Pressure 225/111 H 06/12/18 17:38 O2 Sat (%) 95 06/12/18 17:38 O2 Delivery Mode Room Air Allergies/Adverse Reactions: No Known Allergies Allergy (Verified 02/06/18 16:29) Home Medications: Medication Instructions Recorded Pantoprazole Sodium [Protonix 40mg 40 mg PO BID #60 tab 06/10/17 (*)] Lasix 02/06/18 Lisinopril 02/06/18 Medical Decision Making - Data Points Laboratory Results: Laboratory Results 06/12/18 19:25 06/12/18 19:25 06/12/18 06/12/18 19:25 19:25 WBC 5.30 10^3/uL 10^3/uL (3.80-9.50) RBC 3.85 10^6/uL L 10^6/uL (4.18-5.33) Hgb 11.4 g/dL L g/dL (12.6-16.3) Hct 35.1 % L % (38.0-47.0) MCV 91.2 fL fL (81.5-99.8) MCH 29.6 pg pg (27.9-34.1) MCHC 32.5 g/dL g/dL (32.4-36.7) RDW 13.6 % % (11.5-15.2) Plt Count 225 10^3/uL 10^3/uL (150-400) MPV 10.4 fL fL (8.7-11.7) Neut % (Auto) 59.9 % % (39.3-74.2) Lymph % (Auto) 32.1 % % (15.0-45.0) [place] % (Auto) 5.7 % % (4.5-13.0) Eos % (Auto) 0.8 % % (0.6-7.6) Baso % (Auto) 1.3 % % (0.3-1.7) Nucleat RBC Rel Count 0.0 % % (0.0-0.2) Absolute Neuts (auto) 3.18 10^3/uL 10^3/uL (1.70-6.50) Absolute Lymphs (auto) 1.70 10^3/uL 10^3/uL (1.00-3.00) Absolute Monos (auto) 0.30 10^3/uL 10^3/uL (0.30-0.80) Absolute Eos (auto) 0.04 10^3/uL 10^3/uL (0.03-0.40) Absolute Basos (auto) 0.07 10^3/uL 10^3/uL (0.02-0.10) Absolute Nucleated RBC 0.00 10^3/uL 10^3/uL (0-0.01) Immature Gran % 0.2 % % (0.0-1.1) Immature Gran # 0.01 10^3/uL 10^3/uL (0.00-0.10) Sodium 133 mEq/L L mEq/L (135-145) Potassium 3.7 mEq/L mEq/L (3.3-5.0) Chloride 95 mEq/L L mEq/L (97-110) Carbon Dioxide 29 mEq/l mEq/l (22-31) Anion Gap 9 mEq/L mEq/L (8-16) BUN 21 mg/dL mg/dL (7-23) Creatinine 3.3 mg/dL H mg/dL (0.6-1.0) Estimated GFR 14 Glucose 101 mg/dL H mg/dL (70-100) Calcium 9.5 mg/dL mg/dL (8.5-10.4) Total Bilirubin 0.4 mg/dL mg/dL (0.1-1.4) Conjugated Bilirubin 0.2 mg/dL mg/dL (0.0-0.5) Unconjugated Bilirubin 0.2 mg/dL mg/dL (0.0-1.1) AST 30 IU/L IU/L (14-46) ALT 34 IU/L IU/L (9-52) Alkaline Phosphatase 112 IU/L IU/L (38-126) Total Protein 6.4 g/dL g/dL (6.3-8.2) Albumin 3.6 g/dL g/dL (3.5-5.0) Lipase 329 IU/L H IU/L (23-300) Medications Given: Discontinued Medications Acetaminophen (Tylenol) 650 mg PO EDNOW ONE Stop: 06/12/18 20:13 Last Admin: 09/18/18 20:13 Dose: 650 mg Sodium Chloride (Ns) 500 mls @ 0 mls/hr IV EDNOW ONE; Wide Open PRN Reason: Protocol Stop: 06/12/18 18:03 Last Admin: 06/12/18 18:39 Dose: 500 mls Famotidine/Sodium Chloride (Pepcid 20 Mg (Premix)) 50 mls @ 200 mls/hr IV EDNOW ONE Stop: 06/12/18 18:16 Last Admin: 06/12/18 19:22 Dose: 50 mls Labetalol HCl (Trandate Injection) 20 mg IVP EDNOW ONE Stop: 06/12/18 18:33 Last Admin: 06/12/18 18:34 Dose: 20 mg Labetalol HCl (Trandate Injection) 20 mg IVP EDNOW ONE Stop: 06/12/18 20:03 Last Admin: 06/12/18 20:14 Dose: 10 mg Ondansetron HCl (Zofran) 4 mg IVP EDNOW ONE Stop: 06/12/18 18:03 Last Admin: 06/12/18 18:34 Dose: 4 mg Departure - Departure Disposition: [facility] Inpatient Acute Clinical Impression: Renal failure, Hypertension, Vomiting Referrals: Patient,NotPresent [Unknown] - As per Instructions
[2018-06-12 19:51] LABS: PLATELET COUNT 225 10^3/uL (150-400)
[2018-06-12] MEDS ORDERED: ACETAMINOPHEN 325 MG TAB ONE (20:11)
[2018-06-12] MEDS ORDERED: ACETAMINOPHEN 325 MG TAB PO ONE (20:12)
[2018-06-12] MEDS ORDERED: ONDANSETRON 4 MG/2 ML VIAL IVP PRN (21:13)
[2018-06-12] MEDS ORDERED: ONDANSETRON DISINTEGRATING 4 MG TAB PO PRN (21:13)
[2018-06-12] MEDS ORDERED: ACETAMINOPHEN 325 MG TAB PO PRN (21:13)
[2018-06-12] MEDS ORDERED: PROMETHAZINE HCL 25 MG/ML INJ IVP PRN (21:13)
[2018-06-12] MEDS ORDERED: TEMAZEPAM 15 MG CAP PO PRN (21:13)
[2018-06-12] MEDS ORDERED: hydrALAZINE 20 MG/ML VIAL IVP PRN (21:15)
[2018-06-12] MEDS ORDERED: LISINOPRIL 5 MG TAB PO SCH (21:45)
--- NOTE | 2018-06-12 22:04 | GHP ---
DATE OF ADMISSION: 06/12/2018 CHIEF COMPLAINT: Hypertension and emesis. HISTORY OF PRESENT ILLNESS: This is a 67-year-old female with a history of end-stage renal disease. She was brought in from dialysis. She is normally dialyzed Monday, , and Monday. At the end of dialysis, she felt very cold and clammy. They noted that her blood pressure was extremely hi gh at dialysis with systolics above 200. Because of this, they recommended that she be sent to the e mergency department. In the ambulance, she had an episode of emesis. In the emergency department, s he received some famotidine, as well as IV labetalol for hypertension. She is feeling much better no w. She does not have a headache. She does not really feel nauseous anymore. She does not have any abdominal pain. PAST MEDICAL/SURGICAL HISTORY: 1. End-stage renal disease, dialyzed Tuesdays, , and Saturdays. 2. Pseudogout. 3. Hypertension for which she takes lisinopril 20 mg. 4. AV fistula. 5. History of a splenic rupture. 6. . 7. ACL repair. MEDICATIONS: Please see medication reconciliation. ALLERGIES: No known drug allergies. FAMILY HISTORY: Renal disease. SOCIAL HISTORY: She does not drink or smoke. She runs 3 times a weeks and does Pilates. REVIEW OF SYSTEMS: A 10-point review of systems is conducted and is negative except per HPI. PHYSICAL EXAM: VITAL SIGNS: Blood pressure 144/84, heart rate 60, respiration rate 18, saturating 9 3% on room air. Temperature is 36.5. GENERAL: The patient is a very pleasant female who is resting comfortably. No acute distress. HEENT: Shows her to be normocephalic, atraumatic. CARDIOVASCULAR : Regular rate and rhythm. There are no murmurs, rubs, or gallops. PULMONARY: Lungs clear to ausc ultation bilaterally. ABDOMEN: Shows normal bowel sounds. She is soft, nontender, nondistended. S KIN: Shows no rash. : No Potter. NEUROLOGIC: Shows her to be alert and oriented x3. She is mov ing all extremities. PSYCHIATRIC: Exam shows normal mood and affect. LABORATORIES: CBC shows a hemoglobin of 11.4, which is baseline for her. Creatinine is 3.3, potassi um 3.7, glucose 101, lipase is 329. LFTs are normal. DATA: 1. I discussed this with Dr. Jara. Will admit to PCU. 2. I personally viewed and interpreted her EKG. This shows T-wave inversions in leads V1, V2. This is relatively unchanged from her previous. IMPRESSION AND PLAN: 1. Hypertensive urgency: Already seems to have resolved. I am not sure if this is progression of h er essential hypertension or was due to her acute episode of emesis. For now, will continue her home lisinopril which she takes at night. I have provided her p.r.n. hydralazine. I do not think she ne eds any more aggressive care at this point. 2. Gastritis: She seems much improved at this point. I provided her p.r.n. antiemetics. We will p rovide her a renal diet and see if she is able to tolerate this. 3. End-stage renal disease: She received dialysis today. If she stays more than 1 midnight, would need to involve Nephrology as she would need dialysis on . 4. Disposition: If she is able to tolerate a diet and her blood pressure is controlled overnight, s he may be discharged tomorrow. /[id number]/MODL
--- NOTE | 2018-06-12 23:05 | CPEKG ---
Test Reason : OPEN Blood Pressure : / mmHG Vent. Rate : 056 BPM Atrial Rate : 057 BPM P-R Int : 161 ms QRS Dur : 090 ms QT Int : 484 ms P-R-T Axes : 078 010 065 degrees QTc Int : 468 ms Sinus rhythm Confirmed by Yessenia Jara ([id number]) on 06/12/2018 11:04:37 PM Referred By: Confirmed By:Yessenia Jara
[2018-06-13 04:17] LABS: PLATELET COUNT 224 10^3/uL (150-400)
[2018-06-13 15:11] VITALS: BP 112/64
[2018-06-13] MEDS ORDERED: FLUoxetine 20 MG CAP PO SCH (21:00)
[2018-06-13] MEDS ORDERED: LISINOPRIL 2.5 MG TAB PO SCH (21:00)
[2018-06-13] MEDS ORDERED: Temazepam 7.5 MG PO SCH (21:00)
[2018-06-14] MEDS ORDERED: FUROSEMIDE 80 MG TAB PO SCH (09:00)
== END 2018-06-13 19:00 | disposition home or self-care (01) ==
LOC: EDUNIT# → F2W 21:35
PROVIDERS: ADMIT Student in an Organized Health Care Education/Training Program; ATTEND Student in an Organized Health Care Education/Training Program
DX: I16.0 Hypertensive urgency (principal); I12.0 Hypertensive chronic kidney disease with stage 5 chronic kidney disease or end stage renal disease; N18.6 End stage renal disease; K29.70 Gastritis, unspecified, without bleeding
CPT/HCPCS: 93005; 96361; 96374; 96375; 96376; 99285; G0378; J2405

== ENCOUNTER 2018-09-21 17:00 | Inpatient (IN) | payer OTHER, MEDICAID ==
--- NOTE | 2018-09-21 17:32 | EDPHY ---
H & P Stated Complaint: fatigue, cough, h/a, x 7 d - Personal History Tetanus Vaccine Date: 2016 - Medical/Surgical History Hx Asthma: No Hx Chronic Respiratory Disease: No Hx Diabetes: No Hx Cardiac Disease: No Hx Renal Disease: Yes Hx Cirrhosis: No Hx Alcoholism: No Hx HIV/AIDS: No Hx Splenectomy or Spleen Trauma: Yes Other PMH: appendectomy, , ruptured spleen. CKD stage 4. HTN. Proteinuria - Social History Smoking Status: Never smoked Time Seen by Provider: 09/21/18 17:20 HPI/ROS: Chief complaint: Cold symptoms, fatigue, dialysis patient History of present illness: This is a 67-year-old female, currently on dialysis Monday, and Saturdays. However, because of the holidays her last dialysis this week was on Monday. She states she has been sick for the last week. She reports headache, sore throat that has progressed to chest congestion and cough. Symptoms have been worsening. She now feels fatigued. She was supposed to go into dialysis today but felt too sick and came here instead. Denies precipitating, alleviating or aggravating factors. Review of systems: A 10 point review of systems was obtained and other than described above was negative (Abiel Guillen) - Physical Exam Exam: General Appearance: Alert, unwell, but nontoxic appearing Eyes: Pupils equal and round no pallor or injection. ENT, Mouth: Mucous membranes moist. Respiratory: Patient is speaking in full sentences. No use of accessory muscles. Occasional rhonchi otherwise clear. Cardiovascular: Regular rate and rhythm. Gastrointestinal: Abdomen is soft and non tender, no masses, bowel sounds normal. Neurological: Alert and oriented x4. Strength and sensation intact and symmetrical. Skin: Warm and dry, no rashes. Musculoskeletal: Neck is supple non tender. Extremities are symmetrical, full range of motion. Psychiatric: Patient is oriented X 3, there is no agitation. (Abiel Guillen) Constitutional: Initial Vital Signs Temperature (C) 36.5 C 09/21/18 17:10 Heart Rate 91 09/21/18 17:10 Respiratory Rate 18 09/21/18 17:10 Blood Pressure 195/93 H 09/21/18 17:10 O2 Sat (%) 95 09/21/18 17:10 O2 Delivery Mode Room Air Allergies/Adverse Reactions: No Known Allergies Allergy (Verified 02/06/18 16:29) Home Medications: Medication Instructions Recorded Furosemide [Lasix 80 MG (*)] 80 mg PO HS 02/06/18 Temazepam 7.5 mg PO HS 06/12/18 FLUoxetine HCL [Fluoxetine HCl] 40 mg PO HS 09/21/18 Lisinopril [Zestril 10 mg (*)] 30 mg PO HS 09/21/18 Sevelamer Carbonate [Renvela] 1,600 mg PO TIDMEAL 09/21/18 Sevelamer Carbonate [Renvela] 800 mg PO HS 09/21/18 Medical Decision Making - Diagnostics Imaging: Discussed imaging studies w/ call specialist Radiologist - Diagnostics Imaging Results: Imaging Impressions Chest X-Ray 09/21/18 17:29 Impression: 1. Pulmonary edema pattern. 2. Suspect superimposed bilateral lower lobe, right middle lobe, and lingular pneumonia. Findings and recommendations discussed with Emergency Department physician, CHUCKY Srinivasan, at 1823 hours, on September 21, 2018. Final report concurs with initial preliminary interpretation. ED Course/Re-evaluation: Patient is discussed with my secondary supervising physician Dr. Aime Burton. Patient presents to the emergency department with cold symptoms. She is unwell, but nontoxic. Vital signs are stable. She does appear to have multi lobe pneumonia. She is a dialysis patient. I do believe she is high risk for complications. She will be admitted for further evaluation and care. I have talked with the hospitalist, Dr. Gilbert Hartmann. After discussion with him he requests Rocephin and azithromycin for coverage. I also consulted with the on- call rubber compounder formulator service Dr. Hannah Bianchi, they will consult on patient for inpatient dialysis. The plan has been discussed with the patient who voiced understanding and agreement with it. (Abiel Guillen) Differential Diagnosis: Included but not limited to pneumonia, bronchitis, influenza, other viral syndrome, sepsis unlikely (Abiel Guillen) - Data Points Laboratory Results: Laboratory Results 09/21/18 17:38 09/21/18 17:38 09/21/18 09/21/18 09/21/18 18:26 17:38 17:38 WBC RBC Hgb Hct MCV MCH MCHC RDW Plt Count MPV Neut % (Auto) Lymph % (Auto) Power % (Auto) Eos % (Auto) Baso % (Auto) Nucleat RBC Rel Count Absolute Neuts (auto) Absolute Lymphs (auto) Absolute Monos (auto) Absolute Eos (auto) Absolute Basos (auto) Absolute Nucleated RBC Immature Gran % Immature Gran # VBG Lactic Acid 0.9 mmol/L mmol/L (0.7-2.1) Sodium 134 mEq/L L mEq/L (135-145) Potassium 4.6 mEq/L mEq/L (3.5-5.2) Chloride 102 mEq/L mEq/L (97-110) Carbon Dioxide 17 mEq/l L mEq/l (22-31) Anion Gap 15 mEq/L H mEq/L (6-14) BUN 94 mg/dL H mg/dL (7-23) Creatinine 8.9 mg/dL H* mg/dL (0.6-1.0) Estimated GFR 4 Glucose 96 mg/dL mg/dL (70-100) Calcium 9.3 mg/dL mg/dL (8.5-10.4) Nasal Influenza A PCR NEGATIVE FOR FLU A (NEGATIVE) Nasal Influenza B PCR NEGATIVE FOR FLU B (NEGATIVE) 09/21/18 17:38 WBC 10.09 10^3/uL H 10^3/uL (3.80-9.50) RBC 3.97 10^6/uL L 10^6/uL (4.18-5.33) Hgb 11.8 g/dL L g/dL (12.6-16.3) Hct 36.4 % L % (38.0-47.0) MCV 91.7 fL fL (81.5-99.8) MCH 29.7 pg pg (27.9-34.1) MCHC 32.4 g/dL g/dL (32.4-36.7) RDW 13.9 % % (11.5-15.2) Plt Count 294 10^3/uL 10^3/uL (150-400) MPV 10.9 fL fL (8.7-11.7) Neut % (Auto) 70.9 % % (39.3-74.2) Lymph % (Auto) 23.4 % % (15.0-45.0) Power % (Auto) 3.8 % L % (4.5-13.0) Eos % (Auto) 0.5 % L % (0.6-7.6) Baso % (Auto) 1.2 % % (0.3-1.7) Nucleat RBC Rel Count 0.0 % % (0.0-0.2) Absolute Neuts (auto) 7.16 10^3/uL H 10^3/uL (1.70-6.50) Absolute Lymphs (auto) 2.36 10^3/uL 10^3/uL (1.00-3.00) Absolute Monos (auto) 0.38 10^3/uL 10^3/uL (0.30-0.80) Absolute Eos (auto) 0.05 10^3/uL 10^3/uL (0.03-0.40) Absolute Basos (auto) 0.12 10^3/uL H 10^3/uL (0.02-0.10) Absolute Nucleated RBC 0.00 10^3/uL 10^3/uL (0-0.01) Immature Gran % 0.2 % % (0.0-1.1) Immature Gran # 0.02 10^3/uL 10^3/uL (0.00-0.10) VBG Lactic Acid Sodium Potassium Chloride Carbon Dioxide Anion Gap BUN Creatinine Estimated GFR Glucose Calcium Nasal Influenza A PCR Nasal Influenza B PCR Microbiology Results: MICROBIOLOGY 09/21/18 17:38 Nasal, Sinus - [facility] Viral Transport Respiratory Panel ( PCR) - Final No Organism Detected By Pcr Medications Given: Discontinued Medications Ceftriaxone Sodium/Dextrose (Rocephin 1 Gm (Premix)) 50 mls @ 100 mls/hr IV EDNOW ONE PRN Reason: Protocol Stop: 09/21/18 19:14 Last Admin: 09/21/18 19:18 Dose: 50 mls Lisinopril (Zestril) 30 mg PO EDNOW ONE Stop: 09/21/18 19:26 Last Admin: 09/21/18 19:25 Dose: 30 mg Departure - Departure Disposition: [facility] Inpatient Acute Clinical Impression: Pneumonia Qualifiers: Pneumonia type: due to unspecified organism Laterality: bilateral Lung location : lower lobe of lung Qualified Code(s): J18.1 - Lobar pneumonia, unspecified organism Condition: Fair
[2018-09-21 17:53] LABS: PLATELET COUNT 294 10^3/uL (150-400)
[2018-09-21] MEDS ORDERED: AZITHROMYCIN IV 500 MG in NS 250 ML IV ONE (18:45)
[2018-09-21] MEDS ORDERED: LISINOPRIL 20 MG TAB ONE (19:21)
[2018-09-21] MEDS ORDERED: LISINOPRIL 20 MG TAB PO ONE (19:25)
[2018-09-21] MEDS ORDERED: HYDROmorphONE/DILAUDID 1 MG/ML INJ IVP PRN (20:27)
[2018-09-21] MEDS ORDERED: ACETAMINOPHEN 325 MG TAB PO PRN (20:27)
[2018-09-21] MEDS ORDERED: ONDANSETRON 4 MG/2 ML VIAL IVP PRN (20:27)
[2018-09-21] MEDS ORDERED: oxyCODONE IR 5 MG TAB PO PRN (20:27)
[2018-09-21] MEDS ORDERED: ONDANSETRON DISINTEGRATING 4 MG TAB PO PRN (20:27)
[2018-09-21] MEDS ORDERED: ALBUTEROL 3 ML DEYVIAL IH PRN (20:27)
--- NOTE | 2018-09-21 20:45 | PDGENHP ---
History and Physical - Chief Complaint headache, muscle aches, shortness of breath - History of Present Illness 67yo F on dialysis 2/2 hypertensive nephropathy presents to ED with several issues including headache, shortness of breath, diffuse muscle aches. Her headache and muscle aches started about 7 days ago. Over the last 2 days she has been increasingly lethargic and developed worsening shortness of breath. She has felt occasional palpitations but no chest pain. She was last dialyzed on Monday but felt too ill to go to HD today (she normally gets HD T//Mon but apparently her schedule got mixed up) so she came to the ED. Here, a CXR showed multifocal airspace opacities. She was given ceftriaxone and azithromycin and is being admitted for further evaluation and monitoring. Of note, her BP has been consistently 190-220 in the ED. She denies any focal neurologic symptoms. History Information - Allergies/Home Medication List Allergies/Adverse Reactions: No Known Allergies Allergy (Verified 02/06/18 16:29) Home Medications: Furosemide [Lasix 80 MG (*)] 80 mg PO HS 02/06/18 [Last Taken 09/20/18] Temazepam 7.5 mg PO HS 06/12/18 [Last Taken 06/12/18] FLUoxetine HCL [Fluoxetine HCl] 40 mg PO HS 09/21/18 [Last Taken 09/20/18] Lisinopril [Zestril 10 mg (*)] 30 mg PO HS 09/21/18 [Last Taken 09/20/18] Sevelamer Carbonate [Renvela] 1,600 mg PO TIDMEAL 09/21/18 [Last Taken 09/21/18] Sevelamer Carbonate [Renvela] 800 mg PO HS 09/21/18 [Last Taken 09/20/18] I have personally reviewed and updated: family history, medical history, social history, surgical history - Past Medical History Additional medical history: ESRD 2/2 hypertensive nephropathy (still makes urine ), depression - Surgical History Additional surgical history: LUE AV fistula formation (Dr Senior) about 1 year ago, appendectomy, - Family History Positive for: non-pertinent - Social History Smoking Status: Never smoked Alcohol Use: None Drug Use: None Additional social history: Independent in ADLs. Lives with [place] fink. Review of Systems Review of Systems: ROS: 10pt was reviewed & negative except for what was stated in HPI & below Physical Exam Physical Exam: Temp Pulse Resp BP Pulse Ox 36.5 C 79 16 226/137 H 94 09/21/18 17:10 09/21/18 19:26 09/21/18 19:26 09/21/18 20:16 09/21/18 19:26 Constitutional: no apparent distress, appears nourished, not in pain Eyes: PERRL, anicteric sclera, EOMI Ears, Nose, Mouth, Throat: moist mucous membranes, hearing normal, ears appear normal, no oral mucosal ulcers Cardiovascular: regular rate and rhythym, no murmur, rub, or gallop, No edema Respiratory: no respiratory distress, rhonchi (mild diffuse) Gastrointestinal: normoactive bowel sounds, soft, non-tender abdomen, no palpable masses Genitourinary: no bladder fullness, no bladder tenderness Skin: warm, normal color, no rashes or abrasions, no fluctuance, no induration, No mottled Musculoskeletal: full muscle strength, no muscle tenderness, normal joint ROM, no joint effusions Neurologic: AAOx3 Psychiatric: interacting appropriately, not anxious, not encephalopathic, thought process linear Lab Data & Imaging Review 09/21/18 17:38 09/21/18 17:38 WBC 10.09 10^3/uL (3.80-9.50) H 09/21/18 17:38 RBC 3.97 10^6/uL (4.18-5.33) L 09/21/18 17:38 Hgb 11.8 g/dL (12.6-16.3) L 09/21/18 17:38 Hct 36.4 % (38.0-47.0) L 09/21/18 17:38 MCV 91.7 fL (81.5-99.8) 09/21/18 17:38 MCH 29.7 pg (27.9-34.1) 09/21/18 17:38 MCHC 32.4 g/dL (32.4-36.7) 09/21/18 17:38 RDW 13.9 % (11.5-15.2) 09/21/18 17:38 Plt Count 294 10^3/uL (150-400) 09/21/18 17:38 MPV 10.9 fL (8.7-11.7) 09/21/18 17:38 Neut % (Auto) 70.9 % (39.3-74.2) 09/21/18 17:38 Lymph % (Auto) 23.4 % (15.0-45.0) 09/21/18 17:38 Coffee % (Auto) 3.8 % (4.5-13.0) L 09/21/18 17:38 Eos % (Auto) 0.5 % (0.6-7.6) L 09/21/18 17:38 Baso % (Auto) 1.2 % (0.3-1.7) 09/21/18 17:38 Nucleat RBC Rel Count 0.0 % (0.0-0.2) 09/21/18 17:38 Absolute Neuts (auto) 7.16 10^3/uL (1.70-6.50) H 09/21/18 17:38 Absolute Lymphs (auto) 2.36 10^3/uL (1.00-3.00) 09/21/18 17:38 Absolute Monos (auto) 0.38 10^3/uL (0.30-0.80) 09/21/18 17:38 Absolute Eos (auto) 0.05 10^3/uL (0.03-0.40) 09/21/18 17:38 Absolute Basos (auto) 0.12 10^3/uL (0.02-0.10) H 09/21/18 17:38 Absolute Nucleated RBC 0.00 10^3/uL (0-0.01) 09/21/18 17:38 Immature Gran % 0.2 % (0.0-1.1) 09/21/18 17:38 Immature Gran # 0.02 10^3/uL (0.00-0.10) 09/21/18 17:38 VBG Lactic Acid 0.9 mmol/L (0.7-2.1) 09/21/18 18:26 Sodium 134 mEq/L (135-145) L 09/21/18 17:38 Potassium 4.6 mEq/L (3.5-5.2) 09/21/18 17:38 Chloride 102 mEq/L (97-110) 09/21/18 17:38 Carbon Dioxide 17 mEq/l (22-31) L 09/21/18 17:38 Anion Gap 15 mEq/L (6-14) H 09/21/18 17:38 BUN 94 mg/dL (7-23) H 09/21/18 17:38 Creatinine 8.9 mg/dL (0.6-1.0) H* 09/21/18 17:38 Estimated GFR 4 09/21/18 17:38 Glucose 96 mg/dL (70-100) 09/21/18 17:38 Calcium 9.3 mg/dL (8.5-10.4) 09/21/18 17:38 Nasal Influenza A PCR NEGATIVE FOR FLU A (NEGATIVE) 09/21/18 17:38 Nasal Influenza B PCR NEGATIVE FOR FLU B (NEGATIVE) 09/21/18 17:38 Visualized and Interpreted Chest x-ray results: Yes Visualized and Interpreted imaging results: Yes Interpretation: CXR: multifocal airspace opacities in lower lobes/right middle lobes/lingula, minimal bilateral pleural effusions Assessment & Plan Assessment: 67yo F on dialysis 2/2 hypertensive nephropathy presents to ED with several issues including headache, shortness of breath, diffuse muscle aches found to have multifocal pneumonia. Plan: 1. Multifocal pneumonia: Symptoms could be consistent with viral process ( although resp viral PCR negative) and she is relatively immunocompromised (on HD ) so will cover for bacterial process (CAP). She is not septic or hypoxemic. - Ceftriaxone, azithromycin - Check procalcitonin - Follow blood cultures 2. Headache: Potentially related to elevated BP. Non-focal neuro exam. - Non-contrasted CT head - BP control per below 3. Hypertension: SBP up to 220 in ED. She has missed HD and this is likely the culprit. This is chronic. Lisinopril up-titrated recently in outpt setting. - Start labetalol 100mg BID - Continue lisinopril 30mg daily 4. ESRD: Last dialyzed 09/17. Due to long-standing HTN - Nephrology consulted by ED, will see in AM and likely get HD tomorrow - Continue phos binders 5. Anemia: Of renal disease. Monitor. 6. AGMA: Due to renal disease. VTE ppx: SQH Code: full Diet: renal Dispo: Admit under observation
[2018-09-21] MEDS ORDERED: LISINOPRIL 10 MG TAB PO SCH (21:00)
[2018-09-21] MEDS: LABETALOL HCL 100 MG TAB PO SCH (21:18)
[2018-09-21] MEDS: HEPARIN 5,000 UNIT/0.5 ML INJ SC SCH (22:41)
[2018-09-21] MEDS: ZOLPIDEM TARTRATE 5 MG TAB PO SCH (22:41)
[2018-09-21] MEDS: FLUoxetine 20 MG CAP PO SCH (22:42)
[2018-09-21] MEDS: FUROSEMIDE 40 MG TAB PO SCH (22:42)
[2018-09-21] MEDS: Sevelamer Carbonate [Renvela] 800 MG PO SCH (22:45)
[2018-09-22 05:07] LABS: PLATELET COUNT 247 10^3/uL (150-400)
[2018-09-22] MEDS: HEPARIN 5,000 UNIT/0.5 ML INJ SC SCH ×3 (05:50→21:51)
[2018-09-22] MEDS: LABETALOL HCL 100 MG TAB PO SCH ×2 (08:01→21:42)
[2018-09-22] MEDS: Sevelamer Carbonate [Renvela] 800MG TAB PO SCH ×3 (08:02→19:34)
--- NOTE | 2018-09-22 10:40 | HOSPPROG ---
Hospitalist Progress Note Assessment/Plan: 67yo F on dialysis 2/2 hypertensive nephropathy presents to ED with several issues including headache, shortness of breath, diffuse muscle aches found to have multifocal pneumonia. First encounter, chart reviewed. *multifocal pna -PCR neg -blood cx pending -procalcitonin ordered -ceftriaxone and azithromycin (09/21) * Headache: Potentially related to elevated BP. -Non-focal neuro exam -no further complaints * Hypertension: SBP up to 220 in ED -she had missed dialysis and likely why her bp was so elevated -labetalol 100mg BID added on this admission -lisinopril 30mg daily * ESRD: - dialysis today - Continue phos binders * Anemia: Of renal disease * AGMA: Due to renal disease. -improved *VTE ppx: SQH *plan: dialysis later today, She is still short of breath and requiring O2, will need another midnight stay for monitoring. Poss dc in the a.m. Subjective: Lizette is feeling better today compared to yesterday, still not feeling well. Objective: Vital Signs Temp Pulse Resp BP Pulse Ox 36.4 C 75 16 162/98 H 94 09/22/18 07:45 09/22/18 07:45 09/22/18 07:45 09/22/18 07:45 09/22/18 07:45 Laboratory Results 09/22/18 04:28 09/22/18 04:28 09/21/18 09/22/18 09/23/18 05:59 05:59 05:59 Intake Total 400 Output Total 250 Balance 150 - Physical Exam Constitutional: appears nourished, not in pain Eyes: PERRL Ears, Nose, Mouth, Throat: hearing normal Cardiovascular: regular rate and rhythym Respiratory: no respiratory distress, reduced air movement (bases) Skin: warm Neurologic: AAOx3 Psychiatric: interacting appropriately, flat affect ICD10 Worksheet Patient Problems: Problems Problem Status Onset Pneumonia Acute Hypertension Acute Renal failure Acute Surgical arteriovenous fistula hemorrhage Acute Vomiting Acute
--- NOTE | 2018-09-22 11:26 | ASMTCMCOM ---
CM Note CM Note Notes: Pt admitted for pneumonia, she is on dialysis T//S. She missed dialysis today d/t feeling so poorly, normally indepedent in ADLs. No therapies ordered, anticipate she willl dc home ind when medically stable CM available for any changes. DC Plan: Independent Date Signed: 09/22/2018 11:26 AM Electronically Signed By:Audrey Rodriguez RN
--- NOTE | 2018-09-22 14:28 | PDMN ---
Medical Necessity Medical necessity: [facility] M282 Pneumonia: 67 yo presents w/ H/A, SOB, muscle aches dx with multifocal pneumonia. Initially OBS for workup but requires additional MN for ongoing IV antibx, pending BC, HTN management - SBP still in 160s/90s, and ongoing SOB requiring O2. Will receive HD today in hospital. Meets [facility] IP criteria w/ hypoxemia and ongoing IV antibx plus pt considered high risk w/ hx described below. hx ESRD on HD, hypertensive nephropathy, immunocompromised. Change to IP status 09/22/18@1341 per MD order.
[2018-09-22] MEDS: FLUoxetine 20 MG CAP PO SCH (21:41)
[2018-09-22] MEDS: ZOLPIDEM TARTRATE 5 MG TAB PO SCH (21:41)
[2018-09-22] MEDS: AZITHROMYCIN IV 500 MG in NS 250 ML IV SCH (21:41)
[2018-09-22] MEDS: LISINOPRIL 20 MG TAB PO SCH (21:42)
[2018-09-22] MEDS: Sevelamer Carbonate [Renvela] 800 MG PO SCH (21:43)
[2018-09-22] MEDS: FUROSEMIDE 40 MG TAB PO SCH (21:52)
--- NOTE | 2018-09-22 22:14 | SOAPPROG ---
SOAP Progress Note Assessment/Plan: Assessment/Plan: 67 yo F with PMH significant for ESRD 2/2 HTN on HD TTS at [facility] admitted with multifocal pneumonia (negative RVP). # ESRD- last HD prior to admit was 09/17 (schedule changed this week due to [place]), missed HD later in the week because she was feeling badly *HD 09/22 per routine schedule, continue TTS dialysis while inpatient # CKD-MBD *Check phos in AM --Ok to continue home binders for now # Anemia- Hgb near goal --CTM for now # Metabolic acidosis- 2/2 ESRD and missed HD --Dialyzed on higher bicarb bath on 09/22 # Hypertension --Continue home meds, plus Labetolol was added --UF as tolerated with HD Subjective: 67 yo F with PMH significant for ESRD 2/2 HTN on HD TTS at [facility] who presented with headache, SOB, muscle aches, and lethargy found to have multifocal pneumonia (negative RVP). HD schedule changed this week due to the holiday. Last HD was 09/17. Missed HD later in the week because she felt poorly. Already had her dialysis today and it went well. She is feeling a little stronger than she was on admission. Objective: Vital Signs Temp Pulse Resp BP Pulse Ox 36.4 C 74 16 164/88 H 95 09/22/18 19:24 09/22/18 21:42 09/22/18 19:24 09/22/18 21:42 09/22/18 19:24 09/21/18 09/22/18 09/23/18 05:59 05:59 05:59 Intake Total 350 Output Total 1500 Balance -1150 General- awake, alert, NAD, well-appearing Eyes- anicteric sclera, no conjunctival injection HEENT- MMM, no gross oral lesions Pulm- coarse breath sounds in bilateral posterior lung bolton (R>L), breathing comfortably on RA CV- NRRR, no g/m/r, no LE edema Extrem- Distal LUE AVF with good bruit and thrill Psych- pleasant, answers questions appropriately - Time Spent With Patient Time Spent With Patient: >30min spent on care of this patient with >50% of time spent on counseling and coordination of care ICD10 Worksheet Patient Problems: Problems Problem Status Onset Pneumonia Acute Hypertension Acute Renal failure Acute Surgical arteriovenous fistula hemorrhage Acute Vomiting Acute
[2018-09-23] MEDS: HEPARIN 5,000 UNIT/0.5 ML INJ SC SCH ×3 (07:50→21:24)
[2018-09-23] MEDS: LABETALOL HCL 100 MG TAB PO SCH ×2 (08:34→21:23)
[2018-09-23] MEDS: Sevelamer Carbonate [Renvela] 800MG TAB PO SCH ×3 (08:34→17:46)
--- NOTE | 2018-09-23 09:19 | HOSPPROG ---
Hospitalist Progress Note Assessment/Plan: 67yo F on dialysis 2/2 hypertensive nephropathy presents to ED with several issues including headache, shortness of breath, diffuse muscle aches found to have multifocal pneumonia. First encounter, chart reviewed. *multifocal pna -PCR neg -blood cx pending -procalcitonin elevated but in setting of renal disease -ceftriaxone and azithromycin (09/21) * Headache: -better -Non-focal neuro exam -no further complaints * Hypertension: -BP up to 220 in ED -better -she had missed dialysis and likely why her bp was so elevated -labetalol 100mg BID added on this admission -lisinopril 30mg daily * ESRD: - dialysis - Continue phos binders * Anemia: -Of renal disease * AGMA: -Due to renal disease. -improved *VTE ppx: SQH *plan: -cont supportive care -dialysis as needed -She is still short of breath and requiring O2 -will need another midnight stay for monitoring -Poss dc in the a.m. -PT/OT Subjective: Feeling very weak and tired today. No pain. No specific concerns. Objective: Vital Signs Temp Pulse Resp BP Pulse Ox 36.5 C 70 16 169/90 H 86 L 09/23/18 08:00 09/23/18 08:47 09/23/18 08:00 09/23/18 08:34 09/23/18 08:47 Laboratory Results 09/23/18 04:10 09/23/18 04:10 09/22/18 09/23/18 09/24/18 05:59 05:59 05:59 Intake Total 550 Output Total 1500 Balance -950 - Physical Exam Constitutional: appears nourished, not in pain, chronically ill appearing Eyes: PERRL, anicteric sclera, EOMI Ears, Nose, Mouth, Throat: moist mucous membranes, hearing normal, ears appear normal Cardiovascular: regular rate and rhythym, No JVD, No edema Respiratory: no respiratory distress, no rales or rhonchi, reduced air movement Gastrointestinal: normoactive bowel sounds, No tenderness, No ascites Skin: warm, normal color, No mottled Musculoskeletal: normal joint ROM, no joint effusions, generalized weakness Neurologic: AAOx3 Psychiatric: interacting appropriately, not anxious, not encephalopathic ICD10 Worksheet Patient Problems: Problems Problem Status Onset Hypertension Acute Vomiting Acute Surgical arteriovenous fistula hemorrhage Acute Renal failure Acute Pneumonia Acute
--- NOTE | 2018-09-23 17:20 | SOAPPROG ---
SOAP Progress Note Assessment/Plan: Assessment/Plan: 67 yo F with PMH significant for ESRD 2/2 HTN on HD TTS at [facility] admitted with multifocal pneumonia (negative RVP). # ESRD- last HD prior to admit was 09/17 (schedule changed this week due to [place]), missed HD later in the week because she was feeling badly *HD 09/22 per routine schedule, continue TTS dialysis while inpatient # CKD-MBD -phos 4.5 on 09/23 --Ok to continue home binders for now # Anemia- Hgb near goal --CTM for now # Metabolic acidosis- 2/2 ESRD and missed HD --Dialyzed on higher bicarb bath on 09/22 # Hypertension- likely higher than normal in part secondary to missed HD, much improved --Continue home meds, plus Labetolol was added --UF as tolerated with HD Subjective: Feeling much much better today. Breathing is better. She has been up walking around the floor today. Appetite is back. Objective: Vital Signs Temp Pulse Resp BP Pulse Ox 36.4 C 61 16 131/71 H 93 09/23/18 15:43 09/23/18 15:43 09/23/18 15:43 09/23/18 15:43 09/23/18 16:05 Laboratory Results 09/23/18 04:10 09/23/18 04:10 09/22/18 09/23/18 09/24/18 05:59 05:59 05:59 Intake Total 550 Output Total 1500 Balance -950 General- awake, alert, NAD, well-appearing, looks much better than on admission Eyes- anicteric sclera, no conjunctival injection HEENT- MMM, no gross oral lesions Pulm- lungs clear except for slight coarseness L base, breathing comfortably on RA CV- NRRR, no g/m/r, no LE edema Extrem- Distal LUE AVF with good bruit and thrill Psych- pleasant, answers questions appropriately ICD10 Worksheet Patient Problems: Problems Problem Status Onset Pneumonia Acute Hypertension Acute Renal failure Acute Surgical arteriovenous fistula hemorrhage Acute Vomiting Acute
[2018-09-23] MEDS: AZITHROMYCIN IV 500 MG in NS 250 ML IV SCH (21:20)
[2018-09-23] MEDS: ZOLPIDEM TARTRATE 5 MG TAB PO SCH (21:21)
[2018-09-23] MEDS: LISINOPRIL 20 MG TAB PO SCH (21:21)
[2018-09-23] MEDS: FUROSEMIDE 40 MG TAB PO SCH (21:22)
[2018-09-23] MEDS: FLUoxetine 20 MG CAP PO SCH (21:23)
[2018-09-23] MEDS: Sevelamer Carbonate [Renvela] 800 MG PO SCH (21:24)
[2018-09-24] MEDS ORDERED: MELATONIN 3 MG TAB PO PRN (00:45)
[2018-09-24] MEDS ORDERED: LORazepam 0.5 MG TAB PO PRN (01:13)
[2018-09-24] MEDS: HEPARIN 5,000 UNIT/0.5 ML INJ SC SCH ×2 (04:55→14:13)
[2018-09-24 07:59] VITALS: BP 169/97
[2018-09-24] MEDS: Sevelamer Carbonate [Renvela] 800MG TAB PO SCH ×2 (08:09→13:35)
[2018-09-24] MEDS: LABETALOL HCL 100 MG TAB PO SCH (08:11)
--- NOTE | 2018-09-24 10:57 | SOAPPROG ---
SOAP Progress Note Assessment/Plan: Assessment: Pauline looks quite good 1. CAP Clinically improved. Home on oral antibiotics 2. ESRD She will report at her normal time at the [facility] tomorrow. 3. BP One isolated high reading. Recheck. 4. Anemia Downward trend. Recheck prior to DC. Agree with DC. Plan: 09/24/18 10:54 09/24/18 10:56 Subjective: Feels good Objective: Vital Signs Temp Pulse Resp BP Pulse Ox 36.3 C 76 16 169/97 H 91 L 09/24/18 07:59 09/24/18 07:59 09/24/18 07:59 09/24/18 07:59 09/24/18 07:59 Laboratory Results 09/23/18 04:10 09/23/18 04:10 09/23/18 09/24/18 09/25/18 05:59 05:59 05:59 Intake Total 550 Output Total 1500 Balance -950 Physical Exam - Physical Exam General Appearance: no apparent distress Respiratory: other (Dec'd BS and rales right base) Extremities: normal inspection, other (fistula site ok) Neuro/Psych: oriented x 3 ICD10 Worksheet Patient Problems: Problems Problem Status Onset Pneumonia Acute Hypertension Acute Renal failure Acute Surgical arteriovenous fistula hemorrhage Acute Vomiting Acute
--- NOTE | 2018-09-24 17:23 | GDS ---
DISCHARGE DIAGNOSES: 1. End-stage renal disease. 2. Hypertension. 3. Multi-focal pneumonia. 4. Headache. 5. Hypertension. 6. Anemia. 7. Anion gap metabolic acidosis. PHYSICAL EXAM: GENERAL: The patient is alert. VITAL SIGNS: Afebrile at 36.3, pulse 76, respirator y rate 16. Blood pressure is 169/97. She is saturating 91% on room air. I have seen and evaluated the patient on the day of discharge. HOSPITALIZATION: The patient is a 67-year-old female presents to the emergency room with complaints of shortness of breath. She was evaluated and diagnosed with: 1. Multifactorial pneumonia during this hospitalization. Blood cultures were negative. She was christopher ated with Rocephin and azithromycin. Her symptoms have significantly improved. Her respiratory PCR was negative as well. She will be discharged on azithromycin and Levaquin to finish in the outpatien t setting. 2. Headache. This is secondary to acute infectious process and has resolved. 3. Hypertension. The patient has a long-standing history of hypertension. She has been initiated o n labetalol during this hospitalization, and continued on her previously prescribed lisinopril. Pres cription has been provided for the patient at the time of disposition. 4. End-stage renal disease. Dialysis has been continued. I have discussed the patient's dispositio n with Nephrology. They are comfortable with this plan. 5. Anemia. This is in the setting of chronic disease. Her laboratory evaluation today prior to dis position is stable. 6. Anion gap metabolic acidosis. This is improved. DISPOSITION: The patient will be discharged home independently. DISCHARGE MEDICATIONS: Please refer to EMR form. I have provided the patient a prescription for bre thromycin, as well as labetalol and Levaquin. Her Levaquin has been specifically prescribed for ever y other day. I have discussed the patient's disposition with Dr. Rivas in nephrology. TIME SPENT WITH PATIENT: I spent greater than 35 minutes in the care, coordination, and management o f the patient's discharge. /[id number]/MODL
== END 2018-09-24 14:14 | disposition home or self-care (01) | DRG 193 ==
LOC: INTOOBSV 18:42 → F3E 21:59 → OBSVTOIN 09-22 13:41
PROVIDERS: ADMIT Internal Medicine; ATTEND Internal Medicine
PROC: 5A1D70Z Performance of Urinary Filtration, Intermittent, Less than 6 Hours Per Day (ICD-10-PCS; principal; 2018-09-22)
DX: J18.8 Other pneumonia, unspecified organism (principal); I12.0 Hypertensive chronic kidney disease with stage 5 chronic kidney disease or end stage renal disease; N18.6 End stage renal disease; E87.2 Acidosis; D64.9 Anemia, unspecified
CPT/HCPCS: 96374; G0378; J0456; J0696; J1644; J2405

== ENCOUNTER 2018-10-10 07:04 | Day surgery (SDC) | payer MEDICAID, OTHER ==
[2018-10-10] MEDS ORDERED: LR 1,000 ML IV ONE (07:17)
[2018-10-10 08:08] LABS: PLATELET COUNT 277 10^3/uL (150-400)
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
--- NOTE | 2018-10-10 08:58 | PDANEPAE ---
ANE Past Medical History - Cardiovascular History Hx Hypertension: Yes Hx Arrhythmias: No Hx Chest Pain: No Hx Coronary Artery / Peripheral Vascular Disease: No Hx CHF / Valvular Disease: No Hx Palpitations: No - Pulmonary History Hx COPD: No Hx Asthma/Reactive Airway Disease: No Hx Recent Upper Respiratory Infection: No Hx Oxygen in Use at Home: No Hx Sleep Apnea: No Pulmonary History Comment: Pneumonia - 09/21/2018 - Neurologic History Hx Cerebrovascular Accident: No Hx Seizures: No Hx Dementia: No - Endocrine History Hx Diabetes: No Hypothyroid: No Hyperthyroid: No Obesity: no - Renal History Hx Renal Disorders: Yes Renal History Comment: Renal failure - dialysis (last time 10/09/2018) - Liver History Hx Hepatic Disorders: No - Neurological & Psychiatric Hx Hx Neurological and Psychiatric Disorders: No - Cancer History Hx Cancer: No - Congenital Disorder History Hx Congenital Disorders: No - GI History Hx Gastrointestinal Disorders: No - Chronic Pain History Chronic Pain: No - Surgical History Prior Surgeries: splenectomy. appendectomy. x 1. AV fistula - left arm. Right ACL repair. Port removal ANE Review of Systems Review of Systems: - Exercise capacity METS (RN): 5 METS ANE Patient History - Allergies Allergies/Adverse Reactions: No Known Allergies Allergy (Verified 02/06/18 16:29) - Home Medications Home Medications: Furosemide [Lasix 80 MG (*)] 80 mg PO HS 02/06/18 [Last Taken 10/08/18] FLUoxetine HCL [Fluoxetine HCl] 40 mg PO HS 09/21/18 [Last Taken 10/08/18] Lisinopril [Zestril 10 mg (*)] 30 mg PO HS 09/21/18 [Last Taken 10/08/18] Sevelamer Carbonate [Renvela] 800 mg PO HS 09/21/18 [Last Taken 10/08/18] - NPO status NPO Since - Liquids (Date): 10/10/18 NPO Since - Liquids (Time): 20:00 NPO Since - Solids (Date): 10/09/18 NPO Since - Solids (Time): 17:00 - Smoking Hx Smoking Status: Never smoked - Family Anes Hx Family Hx Anesthesia Complications: none. ANE Labs/Vital Signs - Labs Result Diagrams: 10/10/18 07:54 10/10/18 07:54 - Vital Signs Height: 149.86 cm Weight: 39.916 kg ANE Physical Exam - Airway Neck exam: FROM Mallampati Score: Class 1 Mouth exam: normal dental/mouth exam - Pulmonary Pulmonary: no respiratory distress - Cardiovascular Cardiovascular: regular rate and rhythym - ASA Status ASA Status: III ANE Anesthesia Plan Anesthesia Plan: GA with mask
[2018-10-10] MEDS ORDERED: PROPOFOL 200 MG/20 ML VIAL ONE (09:00)
[2018-10-10] MEDS ORDERED: LIDOCAINE 2% 5 ML SDV ONE (09:04)
--- NOTE | 2018-10-10 09:39 | GIREPORT ---
Formerly [facility] Surgical Services - Endoscopy Department Patient Name: Pauline Coley Procedure Date: 10/10/2018 8:50 AM Patient Type: Outpatient Attending MD/ ER Physician: Nate Herring MD Procedure: Colonoscopy Indications: Screening for colorectal malignant neoplasm Providers: Nate Herring MD Medicines: Propofol per Anesthesia Complications: No immediate complications. Description of Procedure: After obtaining informed consent, the scope was passed under direct vis ion. Throughout the procedure, the patient's blood pressure, pulse, and oxyg en saturations were monitored continuously. The Colonoscope with irrigatio n channel was introduced through the anus and advanced to the cecum, identified by appendiceal orifice and ileocecal valve. The colonoscopy was performed without difficulty. The patient tolerated the procedure well. The quality of the bowel preparation was good. The ileocecal valve, appendi ceal orifice, and rectum were photographed. Moderate Sedation: Propofol per anesthesia Findings: Two sessile polyps were found in the proximal ascending colon and cecum . The polyps were 3 to 4 mm in size. These polyps were removed with a cold bi opsy forceps. Resection and retrieval were complete. Internal hemorrhoids were found during retroflexion. The hemorrhoids we re medium-sized. The exam was otherwise without abnormality on direct and retroflexion v iews. Estimated Blood Loss: Estimated blood loss: none. Post Op Diagnosis: - Two 3 to 4 mm polyps in the proximal ascending colon and in the cecum , removed with a cold biopsy forceps. Resected and retrieved. - Internal hemorrhoids. - The examination was otherwise normal on direct and retroflexion views . Recommendation: - Patient has a contact number available for emergencies. The signs and symptoms of potential delayed complications were discussed with the pat ient. Return to normal activities tomorrow. Written discharge instructions we re provided to the patient. - Resume previous diet. - Continue present medications. - Await pathology results. - Repeat colonoscopy in 5 years for surveillance. - Thank you for allowing me to participate in the care of your patient. Attending Participation: I personally performed the entire procedure. Nate Herring MD Nate Herring MD 10/10/2018 9:39:12 AM This report has been signed electronicallyStmike Herring MD Number of Addenda: 0 Note Initiated On: 10/10/2018 8:50 AM Total Procedure Duration Time 0 hours 11 minutes 52 seconds [email or web address]
--- NOTE | 2018-10-10 09:56 | POSTANESTH ---
Post Anesthetic Evaluation Cardiovascular Status: Normal, Stable Respiratory Status: Normal, Stable Level of Consciousness/Mental Status: Mildly Sleepy, Arousable Pain Control: Adequate, Prn Tx Ordered Nausea/Vomiting Control: Adequate, Prn Tx Ordered Complications Possibly Related to Anesthesia: None Noted
[2018-10-10] MEDS ORDERED: ONDANSETRON 4 MG/2 ML VIAL IVP PRN (10:07)
[2018-10-10] MEDS ORDERED: fentaNYL 100 MCG/2 ML INJ IVP PRN (10:07)
[2018-10-10] MEDS ORDERED: NALOXONE HCL 0.4 MG/ML INJ IVP PRN (10:07)
[2018-10-10] MEDS ORDERED: hydrALAZINE 20 MG/ML VIAL IVP PRN (12:18)
[2018-10-10] MEDS ORDERED: hydrALAZINE 20 MG/ML VIAL ONE (12:37)
[2018-10-10 13:00] VITALS: BP 191/100
== END 2018-10-10 12:50 | disposition home or self-care (01) ==
LOC: FSGY 07:04
PROVIDERS: ATTEND Internal Medicine Gastroenterology
DX: Z12.11 Encounter for screening for malignant neoplasm of colon (principal); D12.0 Benign neoplasm of cecum; D12.2 Benign neoplasm of ascending colon; K64.0 First degree hemorrhoids; N18.4 Chronic kidney disease, stage 4 (severe)
CPT/HCPCS: J0360; J2704

== ENCOUNTER → 2018-11-16 | Outpatient (CLI) | payer MEDICAID, OTHER | LOC: BMCIMAGING 12:45 | PROVIDERS: ATTEND Internal Medicine Nephrology | DX: Z12.31 Encounter for screening mammogram for malignant neoplasm of breast (principal); Z98.82 Breast implant status ==

== ENCOUNTER → 2019-01-23 | Outpatient (CLI) | payer OTHER ==
[~2019-01-23] MED LIST: IOPAMIDOL (ISOVUE 370) 100 ML BTL IV ONE
== END ==
LOC: FIMAGING 12:24
PROVIDERS: ATTEND Nurse Practitioner
DX: R91.8 Other nonspecific abnormal finding of lung field (principal); J42 Unspecified chronic bronchitis
CPT/HCPCS: 71045; Q9967

== ENCOUNTER → 2019-01-23 | Outpatient (CLI) | payer OTHER | LOC: FIMAGING 12:13 | PROVIDERS: ATTEND Nurse Practitioner | DX: N18.6 End stage renal disease (principal) ==

== ENCOUNTER → 2019-01-30 | Outpatient (CLI) | payer OTHER | LOC: BHFA 13:30 | PROVIDERS: ATTEND Internal Medicine Cardiovascular Disease | DX: Z01.810 Encounter for preprocedural cardiovascular examination (principal) | CPT/HCPCS: 78452; 93017; A9500 ==

== ENCOUNTER → 2019-02-11 | Outpatient (CLI) | payer OTHER | LOC: BHFA 10:45 | PROVIDERS: ATTEND Internal Medicine Cardiovascular Disease | DX: Z01.810 Encounter for preprocedural cardiovascular examination (principal); I34.0 Nonrheumatic mitral (valve) insufficiency; I35.0 Nonrheumatic aortic (valve) stenosis ==

== ENCOUNTER 2019-03-24 15:36 | Emergency (ER) | payer OTHER | END 2019-03-24 18:30 | disposition home or self-care (01) ==